=== PATIENT | male | born 1960 | race Caucasian/White ===

== ENCOUNTER 2018-08-24 18:32 | Emergency (ER) | payer BC ==
[~2018-08-24] VITALS: Ht 175.3 cm; Wt 142.9 kg
--- OUTSIDE RECORDS SUMMARY | 2018-08-24 18:35 | XMS REPORT | Summary of Care ---
Author Author [facility] Organization [facility] Address Unknown Phone Unavailable Encounter JAQUELINE Mcgovern(STEPHANIE) [id number] Date(s): 07/17/17 - 07/17/17 [facility] [address] [place] [address]- [phone] Discharge Diagnosis: Abscess of neck Discharge Diagnosis: Chest pain Discharge Disposition: Home or Self Care Attending Physician: Gilberto Mays MD Vital Signs Most recent to 1 2 oldest [Reference Range]: Height 177.8 cm (07/17/17 4:36 PM) Temperature Oral 98.4 DegF 98.7 DegF [96.4-99.1 DegF] (07/17/17 7:40 PM) (07/17/17 4:36 PM) Blood Pressure 123/82 mmHg 145/85 mmHg [90-140/60-90 mmHg] (07/17/17 7:40 PM) *HI* (07/17/17 4:36 PM) Respiratory Rate 18 BRMIN 18 BRMIN [14-20 BRMIN] (07/17/17 7:40 PM) (07/17/17 4:36 PM) Peripheral Pulse 65 bpm 63 bpm Rate [60-100 bpm] (07/17/17 7:40 PM) (07/17/17 4:36 PM) Weight 138.636 kg (07/17/17 4:36 PM) Body Mass Index 43.85 m2 (07/17/17 4:36 PM) Problem List Condition Effective Dates Status Health Status Informant Accelerated Active essential hypertension(Confirm ed) Acid Active reflux(Confirmed) Chest Active pain(Confirmed) Gastric bypass Active operation(Confirmed) Morbid Active obesity(Confirmed) Repair of Active diaphragmatic hiatal hernia(Confirmed) Allergies, Adverse Reactions, Alerts Substance Reaction Severity Status NKDA Active Medications [place] 10/325 oral tablet 1 tab, Route: PO, Drug Form: TAB, Dosing Weight 138.636, kg, ONCE, STAT, Start d ate: 07/17/17 17:53:00 MANAGER SOCIAL, Stop date: 07/17/17 17:53:00 MANAGER SOCIAL Notes: Do not exceed 4gm/day of acetaminophen. (Same as: [place] 325/10) Start Date: 07/17/17 Stop Date: 07/17/17 Status: Completed Saline Flush 0.9% 10 mL, Route: IVP, Drug Form: INJ, Dosing Weight 138.636, kg, PRN, PRN Line Flus h, Start date: 07/17/17 17:24:00 MANAGER SOCIAL, Duration: 30 day, Stop date: 08/16/17 17:2 3:00 MANAGER SOCIAL Notes: (Same as: BD Posiflush) Start Date: 07/17/17 Stop Date: 07/17/17 Status: Discontinued Tylenol with Codeine #3 oral tablet 1 - 2 tab, PO, Q4H, PRN Pain, X 2 day, # 20 tab, 0 Refill(s) Start Date: 07/17/17 Stop Date: 07/19/17 Status: Completed Results ELECTROLYTES Most recent to 1 oldest [Reference Range]: Sodium Lvl [135-145 135 mEq/L mEq/L] (07/17/17 6:30 PM) Potassium Lvl 4.3 mEq/L [3.5-5.1 mEq/L] (07/17/17 6:30 PM) Chloride Lvl [95-109 104 mEq/L mEq/L] (07/17/17 6:30 PM) CO2 [24-32 mEq/L] 23 mEq/L *LOW* (07/17/17 6:30 PM) AGAP [10.0-20.0 12.3 mEq/L mEq/L] (07/17/17 6:30 PM) CHEM PANEL Most recent to 1 oldest [Reference Range]: Creatinine Lvl 1.05 mg/dL [0.50-1.40 mg/dL] (07/17/17 6:30 PM) eGFR 78 mL/min/1.73m2 1 *NA* (07/17/17 6:30 PM) BUN [7-22 mg/dL] 18 mg/dL (07/17/17 6:30 PM) B/C Ratio [6-25] 17 (07/17/17 6:30 PM) Glucose Lvl [70-99 94 mg/dL mg/dL] (07/17/17 6:30 PM) Total Protein 7.4 g/dL [6.4-8.4 g/dL] (07/17/17 6:30 PM) Albumin Lvl [3.5-5.0 3.6 g/dL g/dL] (07/17/17 6:30 PM) Globulin [2.7-4.2 3.8 g/dL g/dL] (07/17/17 6:30 PM) A/G Ratio [0.7-1.6] 0.9 (07/17/17 6:30 PM) Calcium Lvl 8.3 mg/dL [8.5-10.5 mg/dL] *LOW* (07/17/17 6:30 PM) ALT [0-65 unit/L] 18 unit/L (07/17/17 6:30 PM) AST [0-37 unit/L] 18 unit/L (07/17/17 6:30 PM) Alk Phos [39-136 72 unit/L unit/L] (07/17/17 6:30 PM) Bili Total [0.2-1.3 0.5 mg/dL mg/dL] (07/17/17 6:30 PM) 1Result Comment: The eGFR is calculated using the CKD-EPI formula. In most young, healthy individuals the eGFR will be >90 mL/min/1.73m2. The eGFR declines with age. An eGFR of 60-89 may be normal in some populations, particularly the elderly, for whom the CKD-EPI formula has not been extensively validated. Use of the eGFR is not recommended in the following populations: Individuals with unstable creatinine concentrations, including patients and those with serious co-morbid conditions. Patients with extremes in muscle mass or diet. The data above are obtained from the National Kidney Disease Education Program ( NKDEP) which additionally recommends that when the eGFR is used in patients with extremes of body mass index for purposes of drug dosing, the eGFR should be mul tiplied by the estimated BMI. CARDIAC ENZYMES Most recent to 1 oldest [Reference Range]: Total CK [12-191 91 unit/L unit/L] (07/17/17 6:30 PM) CK MB [0.5-3.6 0.9 ng/mL ng/mL] (07/17/17 6:30 PM) CK MB Index 1.0 [0.0-2.5] (07/17/17 6:30 PM) Troponin-I <0.02 ng/mL [0.00-0.40 ng/mL] (07/17/17 6:30 PM) HEMATOLOGY Most recent to 1 oldest [Reference Range]: WBC [3.7-10.4 K/CMM] 8.6 K/CMM (07/17/17 5:53 PM) RBC [4.70-6.10 5.07 M/CMM M/CMM] (07/17/17 5:53 PM) Hgb [14.0-18.0 g/dL] 17.1 g/dL (07/17/17 5:53 PM) Hct [42.0-54.0 %] 49.0 % (07/17/17 5:53 PM) MCV [80.0-94.0 fL] 96.6 fL *HI* (07/17/17 5:53 PM) MCH [27.0-31.0 pg] 33.8 pg *HI* (07/17/17 5:53 PM) MCHC [32.0-36.0 35.0 g/dL g/dL] (07/17/17 5:53 PM) RDW [11.5-14.5 %] 13.4 % (07/17/17 5:53 PM) Platelet [133-450 238 K/CMM K/CMM] (07/17/17 5:53 PM) MPV [7.4-10.4 fL] 6.7 fL *LOW* (07/17/17 5:53 PM) Segs [45.0-75.0 %] 62.6 % (07/17/17 5:53 PM) Lymphocytes 25.4 % [20.0-40.0 %] (07/17/17 5:53 PM) Monocytes [2.0-12.0 8.6 % %] (07/17/17 5:53 PM) Eosinophils [0.0-4.0 2.4 % %] (07/17/17 5:53 PM) Basophils [0.0-1.0 1.0 % %] (07/17/17 5:53 PM) Segs-Bands # 5.4 K/CMM [1.5-8.1 K/CMM] (07/17/17 5:53 PM) Lymphocytes # 2.2 K/CMM [1.0-5.5 K/CMM] (07/17/17 5:53 PM) Monocytes # [0.0-0.8 0.7 K/CMM K/CMM] (07/17/17 5:53 PM) Eosinophils # 0.2 K/CMM [0.0-0.5 K/CMM] (07/17/17 5:53 PM) Basophils # [0.0-0.2 0.1 K/CMM K/CMM] (07/17/17 5:53 PM) Immunizations No data available for this section Procedures No data available for this section Social History Social History Type Response Smoking Status Never smoker; Previous treatment: None; Ready to change: No; Concerns about tobacco use in household: No; Exposure to Tobacco Smoke None; Cigarette Smoking Last 365 Days Yes; Reg Smoking Cessation Counseling No Assessment and Plan No data available for this section
--- OUTSIDE RECORDS SUMMARY | 2018-08-24 18:35 | XMS REPORT | Summary of Care ---
Author Author [facility] General Surgery [facility] Organization [facility] General Surgery [facility] Address Unknown Phone Unavailable Encounter HQ Froilan(FIN) [id number] Date(s): 08/01/17 - 08/01/17 [facility] General Surgery [facility] [address] [facility] [address] [place] [address]- [phone] Discharge Disposition: Home or Self Care Attending Physician: Thomas Cheung MD Referring Physician: Jamal Schmidt MD Vital Signs Most recent to 1 oldest [Reference Range]: Height 177.8 cm (08/01/17 2:33 PM) Temperature Oral 98.3 DegF [96.4-99.1 DegF] (08/01/17 2:33 PM) Blood Pressure 106/72 mmHg [90-140/60-90 mmHg] (08/01/17 2:33 PM) Peripheral Pulse 56 bpm Rate [60-100 bpm] *LOW* (08/01/17 2:33 PM) Weight 139.091 kg (08/01/17 2:33 PM) Body Mass Index 44 m2 (08/01/17 2:33 PM) Problem List Condition Effective Dates Status Health Status Informant Accelerated Active essential hypertension(Confirm ed) Acid Active reflux(Confirmed) Chest Active pain(Confirmed) Gastric bypass Active operation(Confirmed) Hypertension(Confirm Resolved ed) Morbid Active obesity(Confirmed) Repair of Active diaphragmatic hiatal hernia(Confirmed) Allergies, Adverse Reactions, Alerts Substance Reaction Severity Status NKDA Active Medications No Known Medications Results No data available for this section Immunizations No data available for this section Procedures Procedure Date Related Diagnosis Body Site Appendectomy Gastric bypass Procedure on vein Tonsillectomy Social History Social History Type Response Smoking Status Never smoker; Previous treatment: None; Ready to change: No; Concerns about tobacco use in household: No; Exposure to Tobacco Smoke None; Cigarette Smoking Last 365 Days Yes; Reg Smoking Cessation Counseling No Assessment and Plan No data available for this section
--- OUTSIDE RECORDS SUMMARY | 2018-08-24 18:35 | XMS REPORT | Continuity of Care Document ---
Author Author [facility] Interface Address Unknown Phone Unavailable Problems Problem Status Onset Date Classification Date Reported Comments Source Chest pain, unspecified 11/10/2017 02/09/2018 [facility] Chest pain 11/03/2017 02/09/2018 [facility] UPPER ABD PAIN Active 11/02/2017 [facility] Discharge Diagnosis: Abscess of neck 07/17/2017 07/20/2017 [facility] Discharge Diagnosis: Chest pain 07/17/2017 07/20/2017 [facility] LUMP ON BACK OF NECK Active 07/17/2017 [facility] Accelerated essential hypertension Active Problem 02/09/2018 [facility] Acid reflux Active Problem 02/09/2018 [facility], Medical [facility] Chest pain Active Problem 02/09/2018 [facility] Gastric bypass operation Active Problem 02/09/2018 [facility] Morbid obesity Active Problem 02/09/2018 [facility] Repair of diaphragmatic hiatal hernia Active Problem 02/09/2018 [facility] Gastro-esophageal reflux disease without esophagitis 02/09/2018 [facility] Family history of ischemic heart disease and other diseases of the circulatory system 02/09/2018 [facility] Morbid obesity due to excess calories 02/09/2018 [facility] Body mass index 45.0-49.9, adult 02/09/2018 [facility] Hypertension Resolved [facility] Severe obesity Active Problem 03/11/2018 [facility] Obstructive sleep apnea syndrome Active Problem 03/11/2018 [facility] History of essential hypertension Active Diagnosis 01/20/2017 [facility] Hypercholesterolemia Active Problem 03/11/2018 [facility] Acute URI Active Diagnosis 02/23/2017 [facility] Routine general medical examination at a health care facility Active Diagnosis 12/24/2016 [facility] Sebaceous cyst Active Diagnosis 07/29/2017 [facility] History of hiatal hernia Active Problem 11/10/2017 [facility] Venous insufficiency Active Problem 03/11/2018 [facility] S/P gastric bypass Active Problem 03/11/2018 [facility] Hematuria, unspecified type Active Diagnosis 07/14/2017 [facility] Elevated blood pressure reading Active Diagnosis 02/10/2018 [facility] Gastritis without bleeding, unspecified chronicity, unspecified gastritis type Active Problem 03/11/2018 [facility] Essential hypertension Active Diagnosis 03/11/2018 [facility] Examination Active Diagnosis 03/11/2018 [facility] Status post incision and drainage Active Diagnosis 07/29/2017 [facility] Epigastric pain Active Diagnosis 11/08/2017 [facility] Substernal chest pain Active Diagnosis 11/08/2017 [facility] Fatigue, unspecified type Active Diagnosis 11/08/2017 [facility] URI Active Diagnosis 08/26/2015 [facility] Essential hypertension Active Problem 08/26/2015 [facility] Medications Medication Details Route Status Patient Instructions Ordering Provider Order Date Source Famotidine 1 tablet at bedtime Orally Active 20 mg Orally Once a day Forrest Adamson 11/09/2017 [facility] Famotidine 1 tablet at bedtime by mouth Active 20 mg by mouth Once a day Marcial 11/09/2017 [facility] Aspirin 81 MG Chewable Tablet 81 mg=1 tab, PO, Daily, # 30 tab, 0 Refill(s) Active 11/03/2017 [facility] Famotidine 20 MG Oral Tablet [Pepcid] 20 mg=1 tab, PO, BID, # 60 tab, 0 Refill(s) Active 11/03/2017 [facility] Acetaminophen 300 MG / Codeine Phosphate 30 MG Oral Tablet [Tylenol with Codeine #3] 1 - 2 tab, PO, Q4H, PRN Pain, X 2 day, # 20 tab, 0 Refill(s) No Longer Active 07/18/2017 [facility] Acetaminophen 325 MG / Hydrocodone Bitartrate 10 MG Oral Tablet [Bowler 10/325] 1 tab, Route: PO, Drug Form: TAB, Dosing Weight 138.636, kg, ONCE, STAT, Start date: 07/17/17 17:53:00 [employer], Stop date: 07/17/17 17:53:00 CSTNotes: Do not exceed 4gm/day of acetaminophen. (Same as: Bowler 325/10) Inactive 07/17/2017 [facility] Saline Flush 0.9% 10 mL, Route: IVP, Drug Form: INJ, Dosing Weight 138.636, kg, PRN, PRN Line Flush, Start date: 07/17/17 17:24:00 INTELLIGENCE OFFICER, Duration: 30 day, Stop date: 08/16/17 17:23:00 CSTNotes: (Same as: BD Posiflush) Inactive 07/17/2017 [facility] Lisinopril-Hydrochlorothiazide 1 tablet by mouth Active 20-25 MG by mouth Once a day Marcial 07/12/2017 [facility] Clindamycin HCl 1 capsule Orally Active 300 MG Orally every 8 hrs Ghebranious 07/12/2017 [facility] Bromfed DM 10 ml as needed Orally Active 30-2-10 MG/5ML Orally every 4 -6hrs PRN Brody 02/21/2017 [facility] Amoxicillin 1 tablet Orally Active 500 mg Orally every 12 hrs [facility] 08/24/2015 [facility] Bromfed DM 10 ml as needed Orally Active 30-2-10 MG/5ML Orally every 6 hrs [facility] 08/24/2015 [facility] NO OTC meds taken not defined NA Active [facility] Aspir-81 1 tablet Orally Active 81 MG Orally Once a day [facility] Pepto-Bismol 2 tablets as needed Orally Active 262 MG Orally 8 time(s) a day [facility] Pepto-Bismol 2 tablets as needed Orally Active 262 MG Orally 8 time(s) a day [facility] NO OTC meds taken Unknown NA Active [facility] Allergies, Adverse Reactions, Alerts Substance Category Reaction Severity Reaction type Status Date Reported Comments Source N.K.D.A. Adverse Reaction Info Not Available Adverse Reaction Active 02/16/2018 [facility] Immunizations Immunization Date Given Site Status Last Updated Comments Source Results Order Name Results Value Reference Range Date Interpretation Comments Source CARDIAC ENZYMES Troponin-I null 0.00 - 0.40 11/03/2017 [facility] HEMATOLOGY D-Dimer 2.79 ug/mL FEU 11/03/2017 [facility] CARDIAC ENZYMES CK MB Index 1.1 0.0 - 2.5 11/03/2017 [facility] CARDIAC ENZYMES Total CK 88 unit/L 12 - 191 11/03/2017 [facility] CARDIAC ENZYMES Troponin-I null 0.00 - 0.40 11/03/2017 [facility] CARDIAC ENZYMES CK MB 1.0 ng/mL 0.5 - 3.6 11/03/2017 [facility] CARDIAC ENZYMES BNP 4 pg/mL <=100 pg/mL 11/03/2017 [facility] CHEM PANEL eGFR 81 mL/min/1.73m2 11/03/2017 Result Comment: The eGFR is calculated using the [...] from the National Kidney Disease Education Program (NKDEP) which additionally recommends that when the eGFR is used in patients with extremes of body mass index for purposes of drug dosing, the eGFR should be multiplied by the estimated BMI. [facility] CHEM PANEL Globulin 3.9 g/dL 2.7 - 4.2 11/03/2017 [facility] CHEM PANEL A/G Ratio 1.0 0.7 - 1.6 11/03/2017 [facility] CHEM PANEL BUN 17 mg/dL 7 - 22 11/03/2017 [facility] CHEM PANEL Sodium Lvl 136 meq/L 135 - 145 11/03/2017 [facility] CHEM PANEL Creatinine Lvl 1.02 mg/dL 0.50 - 1.40 11/03/2017 [facility] CHEM PANEL Glucose Lvl 90 mg/dL 70 - 99 11/03/2017 [facility] CHEM PANEL Calcium Lvl 8.4 mg/dL 8.5 - 10.5 11/03/2017 [facility] CHEM PANEL Total Protein 7.7 g/dL 6.4 - 8.4 11/03/2017 [facility] CHEM PANEL Albumin Lvl 3.8 g/dL 3.5 - 5.0 11/03/2017 [facility] CHEM PANEL ALT 19 unit/L 0 - 65 11/03/2017 [facility] CHEM PANEL Potassium Lvl 3.9 meq/L 3.5 - 5.1 11/03/2017 [facility] CHEM PANEL CO2 27 meq/L 24 - 32 11/03/2017 [facility] CHEM PANEL Chloride Lvl 102 meq/L 95 - 109 11/03/2017 [facility] CHEM PANEL AGAP 10.9 meq/L 10.0 - 20.0 11/03/2017 [facility] CHEM PANEL B/C Ratio 17 6 - 25 11/03/2017 [facility] CHEM PANEL AST 11 unit/L 0 - 37 11/03/2017 [facility] CHEM PANEL Bili Total 0.7 mg/dL 0.2 - 1.3 11/03/2017 [facility] CHEM PANEL Alk Phos 67 unit/L 39 - 136 11/03/2017 [facility] HEMATOLOGY Segs 64.1 % 45.0 - 75.0 11/03/2017 [facility] HEMATOLOGY Eosinophils 4.2 % 0.0 - 4.0 11/03/2017 [facility] HEMATOLOGY Basophils 0.4 % 0.0 - 1.0 11/03/2017 [facility] Lymphocytes 22.2 % 20.0 - 40.0 11/03/2017 [facility] HEMATOLOGY Monocytes 9.1 % 2.0 - 12.0 11/03/2017 [facility] Monocytes # 0.8 K/CMM 0.0 - 0.8 11/03/2017 [facility] HEMATOLOGY Eosinophils # 0.4 K/CMM 0.0 - 0.5 11/03/2017 [facility] HEMATOLOGY Segs-Bands # 5.7 K/CMM 1.5 - 8.1 11/03/2017 [facility] Lymphocytes # 2.0 K/CMM 1.0 - 5.5 11/03/2017 [facility] HEMATOLOGY PTT 29.7 s 22.9 - 35.8 11/03/2017 [facility] HEMATOLOGY INR 1.00 0.85 - 1.17 11/03/2017 [facility] HEMATOLOGY PT 13.2 s 12.0 - 14.7 11/03/2017 [facility] HEMATOLOGY Hct 44.6 % 42.0 - 54.0 11/03/2017 [facility] HEMATOLOGY RBC 4.69 M/CMM 4.70 - 6.10 11/03/2017 [facility] Hgb 15.6 g/dL 14.0 - 18.0 11/03/2017 [facility] WBC 8.8 K/CMM 3.7 - 10.4 11/03/2017 [facility] MPV 6.6 fL 7.4 - 10.4 11/03/2017 [facility] RDW 13.4 % 11.5 - 14.5 11/03/2017 [facility] Platelet 254 K/CMM 133 - 450 11/03/2017 [facility] MCHC 35.0 g/dL 32.0 - 36.0 11/03/2017 [facility] MCV 95.1 fL 80.0 - 94.0 11/03/2017 [facility] MCH 33.3 pg 27.0 - 31.0 11/03/2017 [facility] Pulmonary Embolism CTA Chest Pulmonary Embolism CTA CT CHEST WITH CONTRAST INDICATION: Evaluate for PE, - chest pain and dyspnea, CT dose DLP 954.56 COMPARISON: Chest radiograph 11/03/2017, CT chest 08/18/2010 DISCUSSION: No pulmonary emboli are visible. The heart is grossly normal in size. Coronary artery calcifications are noted. The aorta is patent and normal in caliber, without evidence of dissection. There is stable elevation of the right hemidiaphragm. There is atelectasis at the lung bases. There is otherwise no consolidation. There is no pleural effusion or pneumothorax. The trachea and major bronchi are clear. No pulmonary nodules are identified. No suspicious lymphadenopathy is seen. There is a 3.3 cm right thyroid nodule. Limited evaluation of the upper abdominal structures is grossly unremarkable. BONES: No acute bony abnormalities are seen. IMPRESSION: 1. No evidence of pulmonary embolism. 2. Stable elevation of the right hemidiaphragm. 3. A 3.3 cm right thyroid nodule. The [employer] (ACR) consensus guidelines for incidental thyroid nodules detected on CT or MRI recommended: Age < 35 years < 1 cm: No further evaluation >=1 cm: Evaluate with thyroid ultrasound Age >=35 years < 1.5 cm: No further evaluation >=1.5 cm: Evaluate with thyroid ultrasound SL:16 11/03/2017 - - Read by: Domenico Ng MD Dictated Date/time: 11/03/17 02:40 Electronically Signed by: Domenico Ng MD 11/03/17 02:54 FINAL REPORT [facility] Chest 2 views DX Chest 2 views DX Clinical Indication: - chest pain Comparison: 07/17/2017 FINDINGS: PA and lateral chest radiographs were obtained. HEART: Cardiomediastinal silhouette unremarkable. PULMONARY VASCULATURE: The pulmonary vasculature is unremarkable. LUNGS: Right lower lobe nonspecific airspace opacity. Costophrenic sulci: -Right costophrenic sulcus: The right costophrenic sulcus is sharp without evidence for pleural effusions or thickening. -Left costophrenic sulcus: The left costophrenic sulcus is sharp without evidence for pleural effusions or thickening. BONES: The visualized osseous structures are unremarkable. IMPRESSION: 1. Slight right lower lobe nonspecific airspace opacity/infiltrate, new. SL: THIAGO 11/03/2017 - - Read by: Jt Morse DO Dictated Date/time: 11/03/17 01:10 Electronically Signed by: Jt Morse DO 11/03/17 01:12 FINAL REPORT [facility] CARDIAC ENZYMES Total CK 91 unit/L 12 - 191 07/18/2017 [facility] CARDIAC ENZYMES Troponin-I null 0.00 - 0.40 07/18/2017 [facility] CARDIAC ENZYMES CK MB 0.9 ng/mL 0.5 - 3.6 07/18/2017 [facility] CARDIAC ENZYMES CK MB Index 1.0 0.0 - 2.5 07/18/2017 [facility] CHEM PANEL eGFR 78 mL/min/1.73m2 07/18/2017 Result Comment: The eGFR is calculated using the [...] from the National Kidney Disease Education Program (NKDEP) which additionally recommends that when the eGFR is used in patients with extremes of body mass index for purposes of drug dosing, the eGFR should be multiplied by the estimated BMI. [facility] CHEM PANEL Alk Phos 72 unit/L 39 - 136 07/18/2017 [facility] CHEM PANEL B/C Ratio 17 6 - 25 07/18/2017 [facility] CHEM PANEL AGAP 12.3 meq/L 10.0 - 20.0 07/18/2017 [facility] CHEM PANEL Bili Total 0.5 mg/dL 0.2 - 1.3 07/18/2017 [facility] CHEM PANEL Globulin 3.8 g/dL 2.7 - 4.2 07/18/2017 [facility] CHEM PANEL A/G Ratio 0.9 0.7 - 1.6 07/18/2017 [facility] CHEM PANEL ALT 18 unit/L 0 - 65 07/18/2017 [facility] CHEM PANEL Albumin Lvl 3.6 g/dL 3.5 - 5.0 07/18/2017 [facility] CHEM PANEL AST 18 unit/L 0 - 37 07/18/2017 [facility] CHEM PANEL Sodium Lvl 135 meq/L 135 - 145 07/18/2017 [facility] CHEM PANEL Potassium Lvl 4.3 meq/L 3.5 - 5.1 07/18/2017 [facility] CHEM PANEL Chloride Lvl 104 meq/L 95 - 109 07/18/2017 [facility] CHEM PANEL Total Protein 7.4 g/dL 6.4 - 8.4 07/18/2017 [facility] CHEM PANEL CO2 23 meq/L 24 - 32 07/18/2017 [facility] CHEM PANEL Calcium Lvl 8.3 mg/dL 8.5 - 10.5 07/18/2017 [facility] CHEM PANEL BUN 18 mg/dL 7 - 22 07/18/2017 [facility] CHEM PANEL Creatinine Lvl 1.05 mg/dL 0.50 - 1.40 07/18/2017 [facility] CHEM PANEL Glucose Lvl 94 mg/dL 70 - 99 07/18/2017 [facility] HEMATOLOGY MCH 33.8 pg 27.0 - 31.0 07/17/2017 [facility] HEMATOLOGY MCV 96.6 fL 80.0 - 94.0 07/17/2017 [facility] HEMATOLOGY MPV 6.7 fL 7.4 - 10.4 07/17/2017 [facility] HEMATOLOGY RDW 13.4 % 11.5 - 14.5 07/17/2017 [facility] HEMATOLOGY MCHC 35.0 g/dL 32.0 - 36.0 07/17/2017 [facility] HEMATOLOGY Platelet 238 K/CMM 133 - 450 07/17/2017 [facility] HEMATOLOGY Hgb 17.1 g/dL 14.0 - 18.0 07/17/2017 [facility] HEMATOLOGY Hct 49.0 % 42.0 - 54.0 07/17/2017 [facility] HEMATOLOGY RBC 5.07 M/CMM 4.70 - 6.10 07/17/2017 [facility] HEMATOLOGY WBC 8.6 K/CMM 3.7 - 10.4 07/17/2017 [facility] HEMATOLOGY Monocytes # 0.7 K/CMM 0.0 - 0.8 07/17/2017 [facility] HEMATOLOGY Eosinophils 2.4 % 0.0 - 4.0 07/17/2017 [facility] HEMATOLOGY Basophils 1.0 % 0.0 - 1.0 07/17/2017 [facility] HEMATOLOGY Segs 62.6 % 45.0 - 75.0 07/17/2017 [facility] Monocytes 8.6 % 2.0 - 12.0 07/17/2017 [facility] HEMATOLOGY Lymphocytes 25.4 % 20.0 - 40.0 07/17/2017 [facility] HEMATOLOGY Basophils # 0.1 K/CMM 0.0 - 0.2 07/17/2017 [facility] HEMATOLOGY Eosinophils # 0.2 K/CMM 0.0 - 0.5 07/17/2017 [facility] HEMATOLOGY Segs-Bands # 5.4 K/CMM 1.5 - 8.1 07/17/2017 [facility] Lymphocytes # 2.2 K/CMM 1.0 - 5.5 07/17/2017 [facility] Chest 1view DX Chest 1view DX 1 view chest portable: HISTORY: Chest pain. FINDINGS: The right diaphragm is elevated. There is minimal atelectasis above the diaphragm. The lungs are clear otherwise. Heart and mediastinal contour stable from 05/14/2012. No pleural fluid or pneumothorax seen. IMPRESSION: Minimal right basilar atelectasis. SL: [id number] 07/17/2017 - - Read by: Jose Rolon MD Dictated Date/time: 07/17/17 17:41 Electronically Signed by: Jose Rolon MD 07/17/17 17:42 FINAL REPORT [facility] Vital Signs Vital Sign Value Date Comments Source Diastolic (mm Hg) 72 02/16/2018 [facility] Systolic (mm Hg) 108 02/16/2018 [facility] Height 70 02/16/2018 [facility] Heart Rate 65 02/16/2018 [facility] Weight 306 11/06/2017 [facility] Height 70 11/06/2017 [facility] Heart Rate 67 11/06/2017 [facility] Diastolic (mm Hg) 78 11/06/2017 [facility] Systolic (mm Hg) 120 11/06/2017 [facility] Respitory Rate 19 11/03/2017 [facility] Systolic (mm Hg) 111 11/03/2017 [facility] Diastolic (mm Hg) 64 11/03/2017 [facility] Temperature Oral (F) 98.4 F 11/03/2017 [facility] Respitory Rate 17 11/03/2017 [facility] Height 175.26 cm 11/03/2017 [facility] Systolic (mm Hg) 114 11/03/2017 [facility] Diastolic (mm Hg) 79 11/03/2017 [facility] Heart Rate 67 11/03/2017 [facility] BMI Calculated 45.43 11/03/2017 [facility] Weight 139.545 11/03/2017 [facility] Temperature Oral (F) 98.6 F 11/03/2017 [facility] Respitory Rate 22 11/03/2017 [facility] Height 177.8 cm 08/16/[facility] BMI Calculated 44.14 08/16/[facility] Weight 139.545 08/16/[facility] Heart Rate 56 08/16/2017 [facility] Systolic (mm Hg) 124 08/16/2017 [facility] Diastolic (mm Hg) 81 08/16/2017 [facility] Temperature Oral (F) 98.1 F 08/16/2017 [facility] Weight 139.091 08/01/2017 [facility] BMI Calculated 44 08/01/2017 [facility] Height 177.8 cm 08/01/2017 [facility] Heart Rate 56 08/01/2017 [facility] Temperature Oral (F) 98.3 F 08/01/2017 [facility] Systolic (mm Hg) 106 08/01/2017 [facility] Diastolic (mm Hg) 72 08/01/2017 [facility] Weight 306 07/19/2017 [facility] Height 70 07/19/2017 [facility] Heart Rate 72 07/19/2017 [facility] Diastolic (mm Hg) 80 07/19/2017 [facility] Systolic (mm Hg) 122 07/19/2017 [facility] Systolic (mm Hg) 123 07/18/2017 [facility] Diastolic (mm Hg) 82 07/18/2017 [facility] Temperature Oral (F) 98.4 F 07/18/2017 [facility] Respitory Rate 18 07/18/2017 [facility] Heart Rate 65 07/18/2017 [facility] Temperature Oral (F) 98.7 F 07/17/2017 [facility] Height 177.8 cm 07/17/2017 [facility] Weight 138.636 07/17/2017 [facility] BMI Calculated 43.85 07/17/2017 [facility] Respitory Rate 18 07/17/2017 [facility] Systolic (mm Hg) 145 07/17/2017 [facility] Diastolic (mm Hg) 85 07/17/2017 [facility] Heart Rate 63 07/17/2017 [facility] Weight 309 07/12/2017 [facility] Height 70 07/12/2017 [facility] Heart Rate 68 07/12/2017 [facility] Diastolic (mm Hg) 102 07/12/2017 [facility] Systolic (mm Hg) 148 07/12/2017 [facility] Weight 310 02/21/2017 [facility] Height 70 02/21/2017 [facility] Heart Rate 64 02/21/2017 [facility] Diastolic (mm Hg) 80 02/21/2017 [facility] Systolic (mm Hg) 130 02/21/2017 [facility] Weight 308 01/18/2017 [facility] Height 70 01/18/2017 [facility] Heart Rate 64 01/18/2017 [facility] Weight 308 12/22/2016 [facility] Height 70 12/22/2016 [facility] Heart Rate 48 12/22/2016 [facility] Diastolic (mm Hg) 94 12/22/2016 [facility] Systolic (mm Hg) 162 12/22/2016 [facility] Weight 296 08/24/2015 [facility] Height 70 08/24/2015 [facility] Temperature Oral (F) 98.6 F 08/24/2015 [facility] Heart Rate 96 08/24/2015 [facility] Diastolic (mm Hg) 84 08/24/2015 [facility] Systolic (mm Hg) 128 08/24/2015 [facility] Encounters Location Location Details Encounter Type Encounter Number Reason For Visit Attending Provider ADM Date DC Date Status Source [facility] sore throat [id number] 08/24/2015 08/24/2015 [facility] Emergency [id number] Gilberto Mays 07/17/2017 07/18/2017 [facility] Outpatient [id number] THOMAS JOSE 08/01/2017 [facility] Outpatient [id number] Thomas Jose 08/01/2017 08/02/2017 [facility] Outpatient [id number] THOMAS JOSE 08/16/2017 [facility] Outpatient [id number] Thomas Jose 08/16/2017 08/17/2017 [facility] Phone Message [id number] 08/22/2017 08/24/2017 [facility] [id number] Heather Martin 11/03/2017 11/03/2017 [facility] Procedures Procedure Code Date Perfomer Comments Source Excision, benign lesion including margins, except skin tag (unless listed elsewhere), trunk, arms or legs; excised diameter 3.1 to 4.0 cm [id number] 08/16/2017 [facility] Repair, intermediate, wounds of scalp, axillae, trunk and/or extremities (excluding hands and feet); 2.6 cm to 7.5 cm [id number] 08/16/2017 [facility] Appendectomy [id number] [facility] Gastric bypass [id number] [facility] Procedure on vein [id number] [facility] Tonsillectomy [id number] [facility] Appendectomy [id number] [facility] Gastric bypass [id number] [facility] Procedure on vein [id number] [facility] Tonsillectomy [id number] [facility]
--- OUTSIDE RECORDS SUMMARY | 2018-08-24 18:36 | XMS REPORT ---
Author Author Oksana Skinner Organization eClinicalWorks Address Unknown Phone Unavailable Care Team Providers Care Skein Yarn Drier Name Role Phone Oksana Skinner CP Unavailable Allergies, Adverse Reactions, Alerts Substance Reaction Event Type N.K.D.A. Info Not Available Non Drug Allergy Problems Problem Type Condition Code Onset Dates Condition Status Assessment History of hiatal hernia Z87.19 Active Assessment Epigastric pain R10.13 Active Assessment Substernal chest pain R07.2 Active Problem History of hiatal hernia Z87.19 Active Problem Venous insufficiency I87.2 Active Problem S/P gastric bypass Z98.84 Active Problem BMI 40.0-44.9, adult Z68.41 Active Problem Severe obesity (BMI >=40) E66.01 Active Problem Hypercholesterolemia E78.00 Active Problem Obstructive sleep apnea syndrome G47.33 Active Assessment Fatigue, unspecified type R53.83 Active Assessment BMI 40.0-44.9, adult Z68.41 Active Assessment Obstructive sleep apnea syndrome G47.33 Active Assessment S/P gastric bypass Z98.84 Active Medications Medication Code System Code Instructions Start Date End Date Status Dosage Pepto-Bismol [facility] [address] 262 MG Orally 8 time(s) a day Active 2 tablets as needed Aspir-81 [facility] 78515305339 81 MG Orally Once a day Active 1 tablet Lisinopril-Hydrochlorothiazide [facility] 25089427135 20-25 MG Orally Once a day Jul 12, 2017 Active 1 tablet Vital Signs Date/Time: November 06, 2017 BMI 43.90 Index Weight 306 lbs Height 70 in Cardiac Monitoring Heart Rate 67 /min Blood Pressure Diastolic 78 mm Hg Blood Pressure Systolic 120 mm Hg Results No Known Results Summary Purpose eClinicalWorks Submission
--- OUTSIDE RECORDS SUMMARY | 2018-08-24 18:36 | XMS REPORT ---
Author Author Sury Hickey [facility] eClinical[employer] Address Unknown Phone Unavailable Care Team Providers Care Security Services Manager Name Role Phone Sury Hickey Unavailable Allergies, Adverse Reactions, Alerts Substance Reaction Event Type N.K.D.A. Info Not Available Non Drug Allergy Encounters Encounter Location Date sore throat [facility] Aug 24, 2015 Problems Problem Type Condition ICD-9 Code Onset Dates Condition Status Assessment URI (upper respiratory infection) J06.9 Active Problem Essential hypertension 401.9 Active Medications Medication Code System Code Instructions Start Date End Date Status Dosage Amoxicillin [facility] [address]-09 500 mg Orally every 12 hrs Aug 24, 2015 Aug 31, 2015 Active 1 tablet Bromfed DM [facility] [address]-69 30-2-10 MG/5ML Orally every 6 hrs Aug 24, 2015 Sep 03, 2015 Active 10 ml as needed NO OTC meds taken Unknown 0 Active Unknown Social History Social History Element Qualifiers Date Reported children . 1 Aug 24, 2015 Tobacco Use: . Are you a: never smoker Aug 24, 2015 Use of recreational / street drugs? . Answer: No Aug 24, 2015 Marital Status: . Aug 24, 2015 Do you drink alcohol? . Status: Yes, Type: Wine, Liquor, How often? Weekly, How much? 1-2 a day Aug 24, 2015 Occupation: employed. scrub nurse Aug 24, 2015 Family history Qualifier Description Comment Date Reported Maternal Grandmother Comment not available Aug 24, 2015 Paternal Grandmother Comment not available Aug 24, 2015 Siblings Comment not available Aug 24, 2015 Maternal Grandfather Comment not available Aug 24, 2015 Children Comment not available Aug 24, 2015 Father CVA, cardiomegaly Aug 24, 2015 Paternal Grandfather Comment not available Aug 24, 2015 Mother healthy Aug 24, 2015 Other: Comment not available Aug 24, 2015 Vital Signs Date/Time: Aug 24, 2015 Weight 296 lbs Height 70 in Temperature 98.6 F Cardiac Monitoring Heart Rate 96 /min Blood Pressure Diastolic 84 mm Hg Blood Pressure Systolic 128 mm Hg Summary Purpose eClinicalWorks Submission
--- OUTSIDE RECORDS SUMMARY | 2018-08-24 18:36 | XMS REPORT ---
Author Author Jamal Schmidt Organization [employer] Address Unknown Phone Unavailable Care Team Providers Care Home Supervisor Name Role Phone Jamal Schmidt CP Unavailable Allergies, Adverse Reactions, Alerts Substance Reaction Event Type N.K.D.A. Info Not Available Non Drug Allergy Problems Problem Type Condition Code Onset Dates Condition Status Assessment Hematuria, unspecified type R31.9 Active Assessment Elevated blood pressure reading R03.0 Active Assessment Sebaceous cyst L72.3 Active Problem Hypercholesterolemia E78.00 Active Problem Obstructive sleep apnea syndrome G47.33 Active Problem Venous insufficiency I87.2 Active Assessment Venous insufficiency I87.2 Active Assessment Colon cancer screening Z12.11 Active Problem BMI 40.0-44.9, adult Z68.41 Active Problem Severe obesity (BMI >=40) E66.01 Active Medications Medication Code System Code Instructions Start Date End Date Status Dosage NO OTC meds taken NDC 0 Active not defined Lisinopril-Hydrochlorothiazide ND 80647749691 20-25 MG Orally Once a day Jul 12, 2017 Active 1 tablet Clindamycin HCl [facility] 77568654203 300 MG Orally every 8 hrs Jul 12, 2017 Jul 22, 2017 Active 1 capsule Vital Signs Date/Time: Jul 12, 2017 BMI 44.33 Index Weight 309 lbs Height 70 in Cardiac Monitoring Heart Rate 68 /min Blood Pressure Diastolic 102 mm Hg Blood Pressure Systolic 148 mm Hg Results No Known Results Summary Purpose eClinicalWorks Submission
--- OUTSIDE RECORDS SUMMARY | 2018-08-24 18:36 | XMS REPORT | Summary of Care ---
Author Author [facility] General Surgery [facility] Organization [facility] General Surgery [facility] Address Unknown Phone Unavailable Encounter HQ Zohaibntr_walter(FIN) [id number] Date(s): 08/22/17 - 08/23/17 [facility] General Surgery [facility] [address] [facility], [facility] [address] [place] [address]- [phone] Vital Signs No data available for this section Problem List Condition Effective Dates Status Health Status Informant Accelerated Active essential hypertension(Confirm ed) Acid Active reflux(Confirmed) Chest Active pain(Confirmed) Gastric bypass Active operation(Confirmed) Hypertension(Confirm Resolved ed) Morbid Active obesity(Confirmed) Repair of Active diaphragmatic hiatal hernia(Confirmed) Allergies, Adverse Reactions, Alerts Substance Reaction Severity Status NKDA Active Medications No data available for this section Results No data available for this section [...]
--- OUTSIDE RECORDS SUMMARY | 2018-08-24 18:36 | XMS REPORT ---
Author Author Jamal Schmidt Organization eClinicalWorks Address Unknown Phone Unavailable Care Team Providers Care Industrial Cleaner Name Role Phone Jamal Schmidt CP Unavailable Allergies No Known Allergies Problems Problem Type Condition Code Onset Dates Condition Status Assessment Elevated blood pressure reading R03.0 Active Problem Venous insufficiency I87.2 Active Problem Hypercholesterolemia E78.00 Active Problem S/P gastric bypass Z98.84 Active Problem Severe obesity (BMI >=40) E66.01 Active Problem Gastritis without bleeding, unspecified chronicity, unspecified gastritis type K29.70 Active Problem Obstructive sleep apnea syndrome G47.33 Active Problem BMI 40.0-44.9, adult Z68.41 Active Medications Medication Code System Code Instructions Start Date End Date Status Dosage Lisinopril-Hydrochlorothiazide [facility] 81669542508 20-25 MG Orally Once a day Jul 12, 2017 Active 1 tablet Results No Known Results Summary Purpose eClinicalWorks Submission
--- OUTSIDE RECORDS SUMMARY | 2018-08-24 18:36 | XMS REPORT | Summary of Care ---
Author Author [facility] Organization [facility] Address Unknown Phone Unavailable Encounter HQ Froilan(FIN) [id number] Date(s): 11/03/17 - 11/03/17 [facility] [address] [place] [address]- Encounter Diagnosis Chest pain (Discharge Diagnosis) - 11/03/17 Chest pain, unspecified (Final) - 11/09/17 Essential (primary) hypertension (Final) - Gastro-esophageal reflux disease without esophagitis (Final) - Family history of ischemic heart disease and other diseases of the circulatory s ystem (Final) - Morbid (severe) obesity due to excess calories (Final) - Body mass index (BMI) 45.0-49.9, adult (Final) - Discharge Disposition: Home or Self Care Attending Physician: Heather Martin DO Vital Signs 1 2 3 Most recent to oldest [Reference Range]: 175.26 cm (11/03/17 12:16 AM) Height 98.4 DegF (11/03/17 3:20 AM) 98.6 DegF (11/03/17 12:16 AM) Temperature Oral [96.4-99.1 DegF] 111/64 mmHg (11/03/17 3:20 AM) 114/79 mmHg (11/03/17 12:16 AM) Blood Pressure [90-140/60-90 mmHg] 19 BRMIN (11/03/17 3:20 AM) 17 BRMIN (11/03/17 12:41 AM) 22 BRMIN *HI* (11/03/17 12:16 AM) Respiratory Rate [14-20 BRMIN] 67 bpm (11/03/17 12:16 AM) Peripheral Pulse Rate [60-100 bpm] 139.545 kg (11/03/17 12:16 AM) Weight 45.43 m2 (11/03/17 12:16 AM) Body Mass Index Problem List Condition Effective Dates Status Health Status Informant Accelerated Active essential hypertension(Confirm ed) Acid Active reflux(Confirmed) Chest Active pain(Confirmed) Gastric bypass Active operation(Confirmed) Hypertension(Confirm Resolved ed) Morbid Active obesity(Confirmed) Repair of Active diaphragmatic hiatal hernia(Confirmed) Allergies, Adverse Reactions, Alerts Substance Reaction Severity Status NKDA Active Medications aspirin 81 mg tablet, chewable 81 mg=1 tab, PO, Daily, # 30 tab, 0 Refill(s) Start Date: 11/03/17 Stop Date: 12/03/17 Status: Ordered Pepcid 20 mg oral tablet 20 mg=1 tab, PO, BID, # 60 tab, 0 Refill(s) Start Date: 11/03/17 Status: Ordered Results ELECTROLYTES Most recent to 1 2 oldest [Reference Range]: Sodium Lvl [135-145 136 mEq/L mEq/L] (11/03/17 12:39 AM) Potassium Lvl 3.9 mEq/L [3.5-5.1 mEq/L] (11/03/17 12:39 AM) Chloride Lvl [95-109 102 mEq/L mEq/L] (11/03/17 12:39 AM) CO2 [24-32 mEq/L] 27 mEq/L (11/03/17 12:39 AM) AGAP [10.0-20.0 10.9 mEq/L mEq/L] (11/03/17 12:39 AM) CHEM PANEL Most recent to 1 2 oldest [Reference Range]: Creatinine Lvl 1.02 mg/dL [0.50-1.40 mg/dL] (11/03/17 12:39 AM) eGFR 81 mL/min/1.73m2 1 *NA* (11/03/17 12:39 AM) BUN [7-22 mg/dL] 17 mg/dL (11/03/17 12:39 AM) B/C Ratio [6-25] 17 (11/03/17 12:39 AM) Glucose Lvl [70-99 90 mg/dL mg/dL] (11/03/17 12:39 AM) Total Protein 7.7 g/dL [6.4-8.4 g/dL] (11/03/17 12:39 AM) Albumin Lvl [3.5-5.0 3.8 g/dL g/dL] (11/03/17 12:39 AM) Globulin [2.7-4.2 3.9 g/dL g/dL] (11/03/17 12:39 AM) A/G Ratio [0.7-1.6] 1.0 (11/03/17 12:39 AM) Calcium Lvl 8.4 mg/dL [8.5-10.5 mg/dL] *LOW* (11/03/17 12:39 AM) ALT [0-65 unit/L] 19 unit/L (11/03/17 12:39 AM) AST [0-37 unit/L] 11 unit/L (11/03/17 12:39 AM) Alk Phos [39-136 67 unit/L unit/L] (11/03/17 12:39 AM) Bili Total [0.2-1.3 0.7 mg/dL mg/dL] (11/03/17 12:39 AM) 1Result Comment: The eGFR is calculated using [...] BMI. CARDIAC ENZYMES Most recent to 1 2 oldest [Reference Range]: Total CK [12-191 88 unit/L unit/L] (11/03/17 12:39 AM) CK MB [0.5-3.6 1.0 ng/mL ng/mL] (11/03/17 12:39 AM) CK MB Index 1.1 [0.0-2.5] (11/03/17 12:39 AM) Troponin-I <0.02 ng/mL <0.02 ng/mL [0.00-0.40 ng/mL] (11/03/17 2:46 AM) (11/03/17 12:39 AM) BNP [<=100 pg/mL] 4 pg/mL (11/03/17 12:39 AM) HEMATOLOGY Most recent to 1 2 oldest [Reference Range]: WBC [3.7-10.4 K/CMM] 8.8 K/CMM (11/03/17 12:39 AM) RBC [4.70-6.10 4.69 M/CMM M/CMM] *LOW* (11/03/17 12:39 AM) Hgb [14.0-18.0 g/dL] 15.6 g/dL (11/03/17 12:39 AM) Hct [42.0-54.0 %] 44.6 % (11/03/17 12:39 AM) MCV [80.0-94.0 fL] 95.1 fL *HI* (11/03/17 12:39 AM) MCH [27.0-31.0 pg] 33.3 pg *HI* (11/03/17 12:39 AM) MCHC [32.0-36.0 35.0 g/dL g/dL] (11/03/17 12:39 AM) RDW [11.5-14.5 %] 13.4 % (11/03/17 12:39 AM) MPV [7.4-10.4 fL] 6.6 fL *LOW* (11/03/17 12:39 AM) Platelet [133-450 254 K/CMM K/CMM] (11/03/17 12:39 AM) Segs [45.0-75.0 %] 64.1 % (11/03/17 12:39 AM) Lymphocytes 22.2 % [20.0-40.0 %] (11/03/17 12:39 AM) Monocytes [2.0-12.0 9.1 % %] (11/03/17 12:39 AM) Eosinophils [0.0-4.0 4.2 % %] *HI* (11/03/17 12:39 AM) Basophils [0.0-1.0 0.4 % %] (11/03/17 12:39 AM) Segs-Bands # 5.7 K/CMM [1.5-8.1 K/CMM] (11/03/17 12:39 AM) Lymphocytes # 2.0 K/CMM [1.0-5.5 K/CMM] (11/03/17 12:39 AM) Monocytes # [0.0-0.8 0.8 K/CMM K/CMM] (11/03/17 12:39 AM) Eosinophils # 0.4 K/CMM [0.0-0.5 K/CMM] (11/03/17 12:39 AM) PT [12.0-14.7 13.2 seconds seconds] (11/03/17 12:39 AM) INR [0.85-1.17] 1.00 (11/03/17 12:39 AM) D-Dimer 2.79 ug/mL FEU *NA* (11/03/17 1:31 AM) PTT [22.9-35.8 29.7 seconds seconds] (11/03/17 12:39 AM) Immunizations No data available for this section Procedures Procedure Date Related Diagnosis Body Site Status Appendectomy Completed Gastric bypass Completed Procedure on vein Completed Tonsillectomy Completed Social History Social History Type Response Smoking Status Never smoker; Previous treatment: None; Ready to change: No; Concerns about tobacco use in household: No; Exposure to Tobacco Smoke None; Cigarette Smoking Last 365 Days Yes; Reg Smoking Cessation Counseling No entered on: 11/03/17 Assessment and Plan No data available for this section
--- OUTSIDE RECORDS SUMMARY | 2018-08-24 18:36 | XMS REPORT ---
Author Kash Blue Organization eClinicalWorks Address Unknown Phone Unavailable Care Team Providers Care Automotive Teacher Name Role Phone Kash Shea CP Unavailable Allergies No Known Allergies Problems Problem Type Condition Code Onset Dates Condition Status Problem Severe obesity (BMI >=40) E66.01 Active Assessment History of essential hypertension Z86.79 Active Problem BMI 40.0-44.9, adult Z68.41 Active Medications No Known Medications Results No Known Results Summary Purpose eClinicalWorks Submission
--- OUTSIDE RECORDS SUMMARY | 2018-08-24 18:36 | XMS REPORT | Summary of Care ---
Author Author [facility] General Surgery [facility] Organization [facility] General Surgery [facility] Address Unknown Phone Unavailable Encounter HQ Froilan(FIN) [id number] Date(s): 08/16/17 - 08/16/17 [facility] General Surgery [facility] [address] [facility] [address] [place] [address]- [phone] Discharge Disposition: Home or Self Care Attending Physician: Thomas Cheung MD Referring Physician: Jamal Schmidt MD Vital Signs Most recent to 1 oldest [Reference Range]: Height 177.8 cm (08/16/17 11:14 AM) Temperature Oral 98.1 DegF [96.4-99.1 DegF] (08/16/17 11:14 AM) Blood Pressure 124/81 mmHg [90-140/60-90 mmHg] (08/16/17 11:14 AM) Peripheral Pulse 56 bpm Rate [60-100 bpm] *LOW* (08/16/17 11:14 AM) Weight 139.545 kg (08/16/17 11:14 AM) Body Mass Index 44.14 m2 (08/16/17 11:14 AM) Problem List Condition Effective Dates Status Health [...] Procedures Procedure Date Related Diagnosis Body Site Excision, benign lesion including margins, 08/16/17 except skin tag (unless listed elsewhere), trunk, arms or legs; excised diameter 3.1 to 4.0 cm Repair, intermediate, wounds of scalp, 08/16/17 axillae, trunk and/or extremities (excluding hands and feet); 2.6 cm to 7.5 cm Appendectomy Gastric bypass Procedure on vein Tonsillectomy Social History Social History Type Response Smoking Status Never smoker; Previous treatment: None; Ready to change: No; Concerns about tobacco use in household: No; Exposure to Tobacco Smoke None; Cigarette Smoking Last 365 Days Yes; Reg Smoking Cessation Counseling No Assessment and Plan No data available for this section
--- OUTSIDE RECORDS SUMMARY | 2018-08-24 18:36 | XMS REPORT ---
Author Author Holli Esparza Organization eClinicalWorks Address Unknown Phone Unavailable Care Team Providers Care First Front Ventilator Name Role Phone Holli Esparza CP Unavailable Allergies No Known Allergies Problems Problem Type Condition Code Onset Dates Condition Status Problem History of hiatal hernia Z87.19 Active Problem Venous insufficiency I87.2 Active Problem S/P gastric bypass Z98.84 Active Problem BMI 40.0-44.9, adult Z68.41 Active Problem Severe obesity (BMI >=40) E66.01 Active Problem Hypercholesterolemia E78.00 Active Problem Obstructive sleep apnea syndrome G47.33 Active Medications Medication Code System Code Instructions Start Date End Date Status Dosage Famotidine [facility] [address]-61 20 mg Orally Once a day November 09, 2017 Active 1 tablet at bedtime Results No Known Results Summary Purpose eClinicalWorks Submission
--- OUTSIDE RECORDS SUMMARY | 2018-08-24 18:36 | XMS REPORT ---
Author Author Jamal Schmidt Organization eClinicalWorks Address Unknown Phone Unavailable Care Team Providers Care Author Agent Name Role Phone Jamal Schmidt CP Unavailable Allergies, Adverse Reactions, Alerts Substance Reaction Event Type N.K.D.A. Info Not Available Non Drug Allergy Problems Problem Type Condition Code Onset Dates Condition Status Problem Hypercholesterolemia E78.00 Active Problem Obstructive sleep apnea syndrome G47.33 Active Problem Venous insufficiency I87.2 Active Assessment Sebaceous cyst L72.3 Active Assessment Status post incision and drainage Z98.890 Active Problem BMI 40.0-44.9, adult Z68.41 Active Problem Severe obesity (BMI >=40) E66.01 Active Medications Medication Code System Code Instructions Start Date End Date Status Dosage Lisinopril-Hydrochlorothiazide [facility] 11115318502 20-25 MG Orally Once a day Jul 12, 2017 Active 1 tablet Clindamycin HCl [facility] 92742032216 300 MG Orally every 8 hrs Jul 12, 2017 Jul 23, 2017 Active 1 capsule Vital Signs Date/Time: Jul 19, 2017 BMI 43.90 Index Weight 306 lbs Height 70 in Cardiac Monitoring Heart Rate 72 /min Blood Pressure Diastolic 80 mm Hg Blood Pressure Systolic 122 mm Hg Results No Known Results Summary Purpose eClinicalWorks Submission
--- OUTSIDE RECORDS SUMMARY | 2018-08-24 18:36 | XMS REPORT ---
Author Author Oksana Skinner [facility] eClinicalWorks Address Unknown Phone Unavailable Care Team Providers Care Shear Grinder Operator Helper Name Role Phone Oksana Skinner CP Unavailable Allergies, Adverse Reactions, Alerts Substance Reaction Event Type N.K.D.A. Info Not Available Non Drug Allergy Problems Problem Type Condition Code Onset Dates Condition Status Problem Obstructive sleep apnea syndrome G47.33 Active Problem BMI 40.0-44.9, adult Z68.41 Active Problem Hypercholesterolemia E78.00 Active Assessment Obstructive sleep apnea syndrome G47.33 Active Assessment Hypercholesterolemia E78.00 Active Problem Severe obesity (BMI >=40) E66.01 Active Assessment Acute URI J06.9 Active Medications Medication Code System Code Instructions Start Date End Date Status Dosage NO OTC meds taken NDC 0 Active not defined Bromfed DM [facility] [address]-51 30-2-10 MG/5ML Orally every 4 -6hrs PRN February 21, 2017 February 28, 2017 Active 10 ml as needed Vital Signs Date/Time: February 21, 2017 BMI 44.48 Index Weight 310 lbs Height 70 in Cardiac Monitoring Heart Rate 64 /min Blood Pressure Diastolic 80 mm Hg Blood Pressure Systolic 130 mm Hg Results Name Result Date Reference Range Unit Abnormality Flag CBC ----Platelets 253 [id number] ----NEUTROPHILS MID-0.5,GRA-6.3 20170221 ----MCHC 34.0 20170221 ----MCH 34.8H 20170221 ----MCV 102.4H 20170221 ----WBC 8.1 20170221 ----RDW 12.2 20170221 ----RBC 4.48 20170221 ----Hemoglobin 15.6 20170221 ----Hematocrit 45.9 20170221 Summary Purpose eClinicalWorks Submission
--- OUTSIDE RECORDS SUMMARY | 2018-08-24 18:36 | XMS REPORT ---
Author Author Morgan Marcial [facility] eClinicalWorks Address Unknown Phone Unavailable Care Team Providers Care Industrial Court Magistrate Name Role Phone Morgan Marcial Unavailable Allergies, Adverse Reactions, Alerts Substance Reaction Event Type N.K.D.A. Info Not Available Non Drug Allergy Problems Problem Type Condition Code Onset Dates Condition Status Assessment Essential hypertension I10 Active Problem Gastritis without bleeding, unspecified chronicity, unspecified gastritis type K29.70 Active Assessment Examination Z00.00 Active Assessment Gastritis without bleeding, unspecified chronicity, unspecified gastritis type K29.70 Active Problem S/P gastric bypass Z98.84 Active Problem Venous insufficiency I87.2 Active Problem Essential hypertension I10 Active Problem BMI 40.0-44.9, adult Z68.41 Active Problem Severe obesity (BMI >=40) E66.01 Active Problem Hypercholesterolemia E78.00 Active Problem Obstructive sleep apnea syndrome G47.33 Active Medications Medication Code System Code Instructions Start Date End Date Status Dosage Lisinopril-Hydrochlorothiazide [facility] 15219139428 20-25 MG by mouth Once a day Jul 12, 2017 Active 1 tablet Famotidine ND 85737813758 20 mg by mouth Once a day November 09, 2017 Active 1 tablet at bedtime Aspir-81 [facility] 63005969119 81 MG Orally Once a day Active 1 tablet Pepto-Bismol [facility] 75664967045 262 MG Orally 8 time(s) a day Active 2 tablets as needed Vital Signs Date/Time: February 16, 2018 Blood Pressure Diastolic 72 mm Hg Blood Pressure Systolic 108 mm Hg Height 70 in Cardiac Monitoring Heart Rate 65 /min Results No Known Results Summary Purpose eClinicalWorks Submission
[2018-08-24] MEDS ORDERED: ASPIRIN 81 MG CHEW TAB PO ONE (19:00)
[2018-08-24 19:13] LABS: BASOPHILS # (AUTO) 0.1 (0.0-0.1); BASOPHILS % 0.9 % (0.0-1.0); EOSINOPHILS # (AUTO) 0.5 (0.0-0.4); EOSINOPHILS % 6.4 % (0.0-6.0); HEMATOCRIT 46.3 % (38.2-49.6); HEMOGLOBIN 16.2 g/dL (14.0-18.0); LYMPHOCYTES # (AUTO) 2.1 (1.0-3.2); LYMPHOCYTES % 26.4 % (18.0-39.1); MEAN CORPUSCULAR HEMOGLOBIN 33.8 pg (28-32); MEAN CORPUSCULAR VOLUME 96.7 fL (81-99); MONOCYTES # (AUTO) 0.7 (0.2-0.8); MONOCYTES % 8.8 % (4.4-11.3); NEUTROPHILS # (AUTO) 4.5 (2.1-6.9); NEUTROPHILS % 57.1 % (38.7-80.0); PLATELET COUNT 246 x10e3/uL (140-360); RED BLOOD COUNT 4.79 x10e6/uL (4.3-5.7); RED CELL DISTRIBUTION WIDTH 13.4 % (11.7-14.4)
--- NOTE | 2018-08-24 19:34 | Diagnostic Imaging Report ---
EXAMINATION: CHEST SINGLE (PORTABLE) COMPARISON: None INDICATION: Chest pain DISCUSSION: Frontal view of the chest obtained at 1906 hours. HEART AND MEDIASTINUM: The cardiomediastinal silhouette is unremarkable. LINES: None. LUNGS: There is eventration of the right diaphragm with overlying subsegmental atelectasis. Remainder of the right lung is clear. The left lung is well inflated and clear. No pneumonia or pulmonary edema. PLEURA: No pleural effusion or pneumothorax. BONES AND SOFT TISSUES: No focal osseous lesion. The soft tissues are normal. IMPRESSION: Eventration of the right diaphragm of uncertain chronicity. No acute cardiopulmonary process. Signed by: Dr. Sophie Muse MD on 08/24/2018 7:30 PM
[2018-08-24 19:42] LABS: ALANINE AMINOTRANSFERASE 21 IU/L (0-55); ALBUMIN 4.1 g/dL (3.5-5.0); ALBUMIN/GLOBULIN RATIO 1.1 (0.8-2.0); ALKALINE PHOSPHATASE 65 IU/L (40-150); ANION GAP 13.4 mmol/L (8-16); BLOOD UREA NITROGEN 17 mg/dL (7-26); BUN/CREATININE RATIO 14 (6-25); CALCIUM 9.8 mg/dL (8.4-10.2); CARBON DIOXIDE 26 mmol/L (22-29); CHLORIDE 99 mmol/L (98-107); CREATINE KINASE 88 IU/L (30-200); CREATININE, SERUM 1.21 mg/dL (0.72-1.25); EST GLOMERULAR FILTRATION RATE > 60 ML/MIN (60-); GLUCOSE 108 mg/dL (74-118); POTASSIUM 3.4 mmol/L (3.5-5.1); SODIUM 135 mmol/L (136-145)
[2018-08-24 19:50] LABS: INR 0.92; PROTHROMBIN TIME 13.2 seconds (11.9-14.5)
[2018-08-24 19:51] LABS: PARTIAL THROMBOPLASTIN TIME 26.4 seconds (23.8-35.5)
[2018-08-24 19:55] LABS: BILIRUBIN,URINE NEGATIVE (NEGATIVE); CLARITY,URINE CLEAR (CLEAR); COLOR,URINE YELLOW (YELLOW); KETONES,URINE NEGATIVE (NEGATIVE); LEUKOCYTE ESTERASE ,URINE NEGATIVE (NEGATIVE); NITRITE,URINE NEGATIVE (NEGATIVE); PROTEIN,URINE DIPSTICK NEGATIVE (NEGATIVE); URINE UROBILINOGEN 0.2 mg/dL (0.2 - 1)
[2018-08-24 20:10] LABS: WBC,URINE (MAN) 0-5 /HPF (0-5)
[2018-08-24] MEDS ORDERED: NEXIUM40 MG PO (20:32)
[2018-08-24] MEDS ORDERED: FAMOTIDINE20 MG PO (20:32)
[2018-08-24] MEDS ORDERED: ASPIRIN81 MG PO (20:32)
[2018-08-24] MEDS ORDERED: LISINOPRIL-HCT1 EAC1 PO (20:32)
--- NOTE | 2018-08-24 21:54 | NUR ---
TRANSFER INITIATED TO [facility]
[2018-08-24] MEDS ORDERED: POTASSIUM CHLORIDE 20 MEQ TAB CR PO STA (22:14)
--- NOTE | 2018-08-24 22:44 | NUR ---
report called to sal burch at [facility]
[2018-08-24 23:11] VITALS: BP 98/71
== END 2018-08-24 23:12 | disposition short-term general hospital (02) ==
LOC: ER 18:32
DX: R07.89 Other chest pain (principal); I20.9 Angina pectoris, unspecified; R53.1 Weakness; R42 Dizziness and giddiness; R11.2 Nausea with vomiting, unspecified; I10 Essential (primary) hypertension; Z98.84 Bariatric surgery status
CPT/HCPCS: 36415; 71045; 80053; 81001; 82550; 82553; 83880; 84484; 85025; 85610; 85730; 93005; 99284

== ENCOUNTER 2019-03-15 21:37 | Observation (INO) | payer BC ==
[~2019-03-15] VITALS: Ht 175.3 cm; Wt 142.9 kg
[~2019-03-15 21:37] MED LIST: ASPIRIN81 MG PO; FAMOTIDINE20 MG PO; LISINOPRIL-HCT1 EAC1 PO; NEXIUM40 MG PO
--- OUTSIDE RECORDS SUMMARY | 2019-03-15 21:39 | XMS REPORT ---
Author Author [facility] Address Unknown Phone Unavailable Care Team Providers Care Family And Divorce Legal Assistant Name Role Phone Lay SPRING Unavailable Unavailable Problems This patient has no known problems. Allergies, Adverse Reactions, Alerts This patient has no known allergies or adverse reactions. Medications This patient has no known medications. Results Test Description Test Time Test Comments Text Results Atomic Results Result Comments CHEST SINGLE (PORTABLE) 2018-08-24 19:29:00 [place] [address] Patient Name: HUNG MCHUGH MR #: [id number] : 1960 Age/Sex: 57/M Req #: [id number] Adm Physician: Ordered by: AINSLEY SPRING MD Report #: [id number] Location: ER Room/Bed: Procedure: [id number] DX/CHEST SINGLE (PORTABLE) Exam Date: 08/24/18 Exam Time: 1900 REPORT STATUS: Signed EXAMINATION: CHEST SINGLE (PORTABLE) COMPARISON: None INDICATION: Chest pain DISCUSSION: Frontal view of the chest obtained at 1906 hours. HEART AND MEDIASTINUM: The cardiomediastinal silhouette is unremarkable. LINES: None. LUNGS: There is eventration of the right diaphragm with overlying subsegmental atelectasis. Remainder of the right lung is clear. The left lung is well inflated and clear. No pneumonia or pulmonary edema. PLEURA: No pleural effusion or pneumothorax. BONES AND SOFT TISSUES: No focal osseous lesion. The soft tissues are normal. IMPRESSION: Eventration of the right diaphragm of uncertain chronicity. No acute cardiopulmonary process. Signed by: Dr. Kasey Clemente MD on 08/24/2018 7:30 PM Dictated By: KASEY CLEMENTE MD 29 Transcribed By: AYDEN on 08/24/181929 COPY TO: AINSLEY SPRING MD
[2019-03-15] MEDS ORDERED: ONDANSETRON HCL INJ 2MG/ML 2ML 2 MG/ML VIAL IV STA (22:20)
[2019-03-15] MEDS ORDERED: KETOROLAC TROMETHAMINE 30 MG/ML VIAL IV STA (22:20)
--- NOTE | 2019-03-15 23:25 | Diagnostic Imaging Report ---
EXAM: CT of the abdomen and pelvis WITHOUT contrast HISTORY: Pain, left side, history of appendectomy and gastric bypass COMPARISON: None available. TECHNIQUE: The abdomen and pelvis were scanned utilizing a multidetector helical scanner. Coronal and sagittal reformats are available. PROTOCOL: Renal colic IV CONTRAST: None, which limits sensitivity and specificity of evaluation of the soft tissues and vascular structures. ORAL CONTRAST: None, which limits sensitivity and specificity of evaluation of the bowel. RADIATION DOSE: Total DLP: 1476.52 mGy*cm Estimated effective dose: (DLP x 0.015 x size factor) Dose modulation, iterative reconstruction, and/or weight based adjustment of the mA/kV was utilized to reduce the radiation dose to as low as reasonably achievable. COMPLICATIONS: None FINDINGS: LOWER THORAX: Mild right greater than left atelectasis versus scarring. Mild bronchial wall thickening. HEPATOBILIARY: No definite focal hepatic lesions. No biliary ductal dilatation. The gallbladder is unremarkable. SPLEEN: No splenomegaly. PANCREAS: No focal masses or ductal dilatation. ADRENALS: No adrenal nodule. KIDNEYS/URETERS: Right: * A 5 mm calcification at the interpolar region. * A 3 mm calcification near the inferior pole. * A 2.4 cm interpolar region fluid density, compatible with a cyst. * No hydronephrosis. Left: * A 1.6 cm fluid density at the upper interpolar region, compatible with a cyst. * A 6 mm calcific density near the ureteropelvic junction. * Mild hydroureteronephrosis. * Perinephric fat stranding. PELVIC ORGANS/BLADDER: The urinary bladder is partially decompressed. Borderline enlargement of prostate. PERITONEUM / RETROPERITONEUM: No free air or fluid. GI TRACT: No bowel dilation. Postsurgical changes at the gastroesophageal junction, stomach, and left upper quadrant the abdomen, compatible with provided history of gastric bypass. Post surgical changes compatible with appendectomy. LYMPH NODES: No pathologically enlarged lymph nodes. VESSELS: Scattered atherosclerotic vascular calcifications, including the coronary arteries. BONES and JOINTS: No aggressive osseous lesion or acute fracture. SOFT TISSUES: Unremarkable. IMPRESSION: 1. A 6 mm left obstructing distal ureteral stone, associated mild hydroureteronephrosis. 2. A 5 mm and 3 mm nonobstructing right renal stone. 3. Coronary atherosclerosis. Signed by: Dr. Ajit Reilly D.O., M.M.M. on 03/15/2019 11:22 PM
[2019-03-15 23:30] LABS: BILIRUBIN,URINE SMALL (NEGATIVE); CLARITY,URINE CLEAR (CLEAR); COLOR,URINE YELLOW (YELLOW); KETONES,URINE TRACE (NEGATIVE); LEUKOCYTE ESTERASE ,URINE NEGATIVE (NEGATIVE); NITRITE,URINE NEGATIVE (NEGATIVE); PROTEIN,URINE DIPSTICK TRACE (NEGATIVE); URINE UROBILINOGEN 1 mg/dL (0.2 - 1)
[2019-03-15 23:36] LABS: BASOPHILS # (AUTO) 0.1 (0.0-0.1); BASOPHILS % 0.5 % (0.0-1.0); EOSINOPHILS # (AUTO) 0.2 (0.0-0.4); EOSINOPHILS % 1.8 % (0.0-6.0); HEMATOCRIT 44.4 % (38.2-49.6); HEMOGLOBIN 15.9 g/dL (14.0-18.0); LYMPHOCYTES # (AUTO) 1.6 (1.0-3.2); LYMPHOCYTES % 16.2 % (18.0-39.1); MEAN CORPUSCULAR HEMOGLOBIN 33.8 pg (28-32); MEAN CORPUSCULAR HGB CONC 35.8 g/dL (31-35); MEAN CORPUSCULAR VOLUME 94.5 fL (81-99); MONOCYTES % 9.8 % (4.4-11.3); NEUTROPHILS # (AUTO) 6.9 (2.1-6.9); NEUTROPHILS % 71.4 % (38.7-80.0); PLATELET COUNT 276 x10e3/uL (140-360); RED CELL DISTRIBUTION WIDTH 13.2 % (11.7-14.4)
[2019-03-15 23:59] LABS: ALBUMIN 4.1 g/dL (3.5-5.0); ALBUMIN/GLOBULIN RATIO 1.2 (0.8-2.0); ANION GAP 16.3 mmol/L (8-16); CALCIUM 9.4 mg/dL (8.4-10.2); CREATININE, SERUM 1.61 mg/dL (0.72-1.25); POTASSIUM 4.3 mmol/L (3.5-5.1)
[2019-03-16] VITALS (8 sets, daily range): BP systolic 101–126; BP diastolic 55–95
[2019-03-16 00:11] LABS: EPITHELIAL CELLS,URINE FEW /LPF; MUCUS,URINE FEW (RARE); RBC,URINE 0-5 /HPF (0-5); WBC,URINE (MAN) 0-5 /HPF (0-5)
[2019-03-16] MEDS ORDERED: ONDANSETRON HCL INJ 2MG/ML 2ML 2 MG/ML VIAL IV PRN (00:30)
[2019-03-16] MEDS ORDERED: MORPHINE SULFATE INJ 4 MG/ML INJ 1ML IV PRN ×2 (00:30→11:00)
--- NOTE | 2019-03-16 02:00 | NUR ---
Patient received via W/C from ER. AAO x 4. Admission history obtained. Initial physical assessment performed. Patient had no c/o pain. Respirations even and non-labored. Patient oriented to room, call light and plan of care. Patient instructed about "NPO status" for upcoming surgical procedure. Patient verbalized understanding. Fall precautions implemented. Patient instructed to call for assistance when needed. Call light within reach.
[2019-03-16] MEDS: SODIUM CHLORIDE 0.9% 1000ML 1,000 ML IV SCH ×3 (02:05→20:18)
[2019-03-16] MEDS: CEFTRIAXONE SOD 1 GM/NS 50 ML 50 ML IV SCH (02:05)
[2019-03-16] MEDS ORDERED: LIPITOR10 MG PO (03:27)
--- NOTE | 2019-03-16 04:30 | NUR ---
Patient complained of left flank pain (8/). Medication administered per eMAR.
--- NOTE | 2019-03-16 06:26 | NUR ---
Patient reminded to void in urinal as urine would be strained after each void. Patient stated he has not voided since admission. Would continue to monitor.
--- NOTE | 2019-03-16 07:05 | NUR ---
Walking rounds done. Shift report given to oncoming nurse regarding patient's health status.
--- NOTE | 2019-03-16 07:30 | NUR ---
REC'D PT AAOX3, ON NPO DIET, ON ROOM AIR, IV TO RIGHT AC 20 GAUGE INTACT AND PATENT. INSTRUCTED PT TO CALL WHEN HE URINATES IN URINAL TO STRAIN URINE. FLUIDS RUNNING. SIDE RAILS UP X2, CALL CARIAS WITHIN REACH, AND BED IN LOWEST POSITION.
[2019-03-16] MEDS ORDERED: MAGNESIUM HYDROXIDE 30 ML UDC PO PRN (11:00)
[2019-03-16] MEDS ORDERED: HYDROCODONE/APAP 10MG-325MG TAB PO PRN (11:00)
--- NOTE | 2019-03-16 11:06 | History and Physical ---
PRIMARY CARE PHYSICIAN: Dr. Jamal Schmidt. WINCHMAN/CRANE OPERATOR: Dr. Alex Simon. CHIEF COMPLAINT: Left obstructive 6 mm stone associated with hydronephrosis. HISTORY OF PRESENT ILLNESS: The patient is a 58-year-old male, had no significant medical problem, came in with left renal colic and left flank pain. CT scan shown that the patient has a 6 mm left obstructed kidney stone associated with hydroureteronephrosis. The patient is pending further evaluation. He is doing much better with pain control. PAST MEDICAL HISTORY: Kidney stone, hypertension, dyslipidemia. PAST SURGICAL HISTORY: Bariatric surgery, appendectomy, gastric bypass surgery. SOCIAL HISTORY: The patient does not smoke or use alcohol. No recreational drug use. ALLERGIES: NO KNOWN ALLERGIES. HOME MEDICATIONS: Aspirin, Lipitor, Nexium, and lisinopril/HCTZ. PHYSICAL EXAMINATION: VITAL SIGNS: Temperature is 98, blood pressure 101/57, pulse rate is 52, and respirations 18. GENERAL: The patient is not in acute distress. He is awake. HEENT: Normocephalic, atraumatic. Pupils reactive. Anicteric. NECK: Supple grossly. PULMONARY: Clear. CARDIOVASCULAR: Regular rate and rhythm. ABDOMEN: Soft. Unremarkable. EXTREMITIES: No cyanosis or edema. NEUROLOGIC: No gross focal deficit. LABORATORY DATA: Sodium is 138, potassium 4.3, chloride 104, bicarb 22, BUN is 27, creatinine 1.6, glucose is 130. WBC is 9.7, hemoglobin is 15.9, hematocrit is 44.4, platelets are 276. IMPRESSION: 1. A 6 mm left obstructed kidney stone associated with hydroureteronephrosis. 2. Baseline hypertension. 3. Baseline chronic kidney disease, stage unknown. PLAN: Continue with IV fluid rehydration. Hold off home medication for now. Antibiotics, pain control and stone management by Dr. Alex Simon on consult. MD WHITNEY Martinez/OMAYRA /[id number]
--- NOTE | 2019-03-16 11:40 | NUR ---
DR. FARLEY SAW PT TO TALK ABOUT SURGERY. TO GET CONSENT SIGNED FROM PATIENT FOR A CYSTORETROGRADE LEFT STENT PLACEMENT.
[2019-03-16] MEDS ORDERED: IOPAMIDOL 610MG/1ML 300 MG/ML VIAL IV ONE (15:25)
--- NOTE | 2019-03-16 15:35 | NUR ---
PT TAKEN TO SURGERY VIA STRETCHER.
--- NOTE | 2019-03-16 16:55 | NUR ---
REC'D REPORT FROM DOMINIC IN PACU. PT VITAL SIGNS STABLE. 112/ 77, HR 67, 94% ON RA, 16 RR, AND 97.[address] FARLEY.
[2019-03-16] MEDS ORDERED: SODIUM CHLORIDE 0.9% 1000ML 1,000 ML ONE (17:37)
--- NOTE | 2019-03-16 17:59 | NUR ---
PT RESTING IN BED EATING DINNER. NO S/S OF DISTRESS AND PT STATES NO PAIN. SIDE RAILS UP X2, CALL CARIAS WITHIN REACH, AND BED IN LOWEST POSITION.
[2019-03-16] MEDS ORDERED: SEVOFLURANE INHAL SOLN 250 ML PEN BTL ONE (18:04)
[2019-03-16] MEDS ORDERED: PROPOFOL IV EMULSION 10 MG/ML 20 ML VIAL ONE (18:04)
[2019-03-16] MEDS ORDERED: DEXAMETHASONE SOD PHOS INJ 4 MG/ML VIAL ONE (18:04)
[2019-03-16] MEDS ORDERED: SUCCINYLCHOLINE 200 MG/10 ML SYR ONE (18:04)
[2019-03-16] MEDS ORDERED: LIDOCAINE HCL 2% LOCAL INJ 5 ML SDV VIAL INJ ONE (18:04)
[2019-03-16] MEDS ORDERED: FENTANYL CITRATE/PF 100MCG/2 ML INJ ONE (18:04)
[2019-03-16] MEDS ORDERED: MIDAZOLAM HCL 2 MG/2 ML VIAL ONE (18:04)
[2019-03-16] MEDS: SENNOSIDES 8.6 MG TAB PO SCH (18:21)
--- NOTE | 2019-03-16 19:15 | NUR ---
Patient received lying in bed. AAO x 4. Denies pain at this time. Blood tinged urine in urinal strained. No sediments noted. Fall precautions implemented. Call light within reach.
--- NOTE | 2019-03-16 20:13 | Consultation ---
DATE OF CONSULTATION: 03/16/2019 Consultation is called by Dr. Brock, emergency room. CHIEF COMPLAINT/REASON FOR CONSULTATION: Left ureteral calculus. HISTORY OF PRESENT ILLNESS: Mr. Porter is a very pleasant 58-year-old male, who has an episode of hip hematuria, found to have a left 6 mm UPJ calculus with hydronephrosis for which urologic consultation requested. PAST MEDICAL HISTORY: Notable for gastric bypass, appendectomy, and hypertension. MEDICATIONS: Please see MAR. ALLERGIES: NKDA. SOCIAL HISTORY: Denied smoking or drinking. FAMILY HISTORY: Denied urologic stones or malignancies. REVIEW OF SYSTEMS: Noncontributory other than problems mentioned above for 12 organ systems. PHYSICAL EXAMINATION: GENERAL: A middle-aged male, in no distress. VITAL SIGNS: Temperature 97.0, pulse 52, respirations 18, and blood pressure 101/57. HEENT: Normocephalic, atraumatic. NECK: Supple. BACK: Without costovertebral angle tenderness bilaterally. ABDOMEN: Soft. obese. It is nontender, nondistended. No palpable mass. No palpable hernias. No palpable lymphadenopathy. : Normal male genitalia. EXTREMITIES: Without edema. NEUROLOGIC: Moves all four extremities. PSYCH: Alert and appropriate. SKIN: Intact. Normal color. PERTINENT LABORATORY DATA: CT scan revealing a 5 mm right middle pole calculus, 3 mm right lower pole calculus, 1.6 cm left renal cyst, 6 mm left UPJ calculus, and hydronephrosis. Urinalysis, 0-5 reds, 0-5 whites, trace protein. Sodium 138, potassium 4.3, chloride 104, bicarb 21, BUN 27, creatinine 1.6, and glucose 130. Hemoglobin 15, hematocrit 44, platelet count 236,000, and white blood cell count 9700. IMPRESSION: 1. Left ureteral calculus. 2. Bilateral renal stones. 3. Left hydronephrosis. 4. Left renal colic. 5. Hematuria. 6. Renal cyst. 7. Obesity. 8. Acute renal failure. PLAN: The patient will need stenting in acute renal failure. We will perform urgently. He has been on prophylactic antibiotics. The patient's cyst will under surveillance. Thank you for allowing me to participate in the care of your patient. I will be happy to follow along with you. MD SETH Pederson/OMAYRA /[id number]
--- NOTE | 2019-03-16 23:04 | Operative Report ---
DATE OF PROCEDURE: 03/16/2019 SURGEON: Alex Simon MD PREOPERATIVE DIAGNOSES: 1. Microscopic hematuria. 2. Left-sided hydronephrosis. POSTOPERATIVE DIAGNOSES: 1. Microscopic hematuria. 2. Left-sided hydronephrosis. 3. Urethral stricture disease. PROCEDURES: 1. Cystourethroscopy with calibration and dilation of urethral stricture (separate procedure for Urethral stricture disease). 2. Cystourethroscopy with right ureter catheterization and right retrograde pyelogram (separate procedure for the diagnosis of microscopic hematuria). 3. Cystourethroscopy with insertion of left indwelling ureteral stent (separate procedure for diagnosis of left hydronephrosis). 4. Supervision of fluoroscopy. 5. Interpretation of retrograde pyelography. ANESTHESIA: General. ESTIMATED BLOOD LOSS: Minimal. COMPLICATIONS: None. INDICATION: Mr. Porter is a very pleasant 58-year-old male with acute onset of sharp severe left-sided flank pain and history of hematuria. He and I had a long discussion about alternatives, risks, and benefits of doing nothing, stent placement and nephrostomy versus options, alternatives, risks, and benefits of the procedure. PROCEDURE IN DETAIL: After informed consent was obtained, the patient was taken to the operative suite. He was placed supine on the table. He underwent general anesthesia by Anesthesia Service. He was placed in dorsal lithotomy position, sterilely prepped and draped in standard fashion for cystoscopy. A 21-Bahamian cystoscope was inserted per urethra. multifocal bulbar urethral stricture was noted. Panendoscopy of the bladder revealed no tumors, no stones. The right ureteral orifice was catheterized, and retrograde pyelogram was performed on the right revealed several renal calculi, left revealed a 6 mm proximal ureteral calculus, which was manipulated in the renal pelvis. The ureteral stent was deployed with coil in the renal pelvis and the coil in the bladder 7 x 28 cm. The bladder was drained. The patient was awakened from anesthesia and transferred to the recovery room in excellent condition. Supervision of fluoroscopy and interpretation under of retrograde pyelography: I was present for the entire procedure and supervised fluoroscopy. There was no radiologist present. Attention was turned to the left ureteral orifice, which was catheterized. Retrograde pyelogram was performed. On the right side, there was stone in the mid upper pole and right side and on the left side a 6 mm ureteral calculus was manipulated in the renal pelvis. A ureteral stent deployed on the left-side. MD SETH Pederson/MODL /[id number]
[2019-03-17] MEDS: CEFTRIAXONE SOD 1 GM/NS 50 ML 50 ML IV SCH (00:22)
[2019-03-17 00:37] VITALS: BP 114/56
[2019-03-17 05:16] VITALS: BP 114/76
[2019-03-17 06:01] LABS: BASOPHILS % 0.2 % (0.0-1.0); EOSINOPHILS % 0.1 % (0.0-6.0); HEMATOCRIT 39.5 % (38.2-49.6); HEMOGLOBIN 13.8 g/dL (14.0-18.0); LYMPHOCYTES % 11.2 % (18.0-39.1); MEAN CORPUSCULAR HEMOGLOBIN 33.8 pg (28-32); MEAN CORPUSCULAR HGB CONC 34.9 g/dL (31-35); MEAN CORPUSCULAR VOLUME 96.8 fL (81-99); MONOCYTES # (AUTO) 0.4 (0.2-0.8); NEUTROPHILS # (AUTO) 7.3 (2.1-6.9); PLATELET COUNT 185 x10e3/uL (140-360); RED BLOOD COUNT 4.08 x10e6/uL (4.3-5.7); RED CELL DISTRIBUTION WIDTH 13.2 % (11.7-14.4)
[2019-03-17 06:22] LABS: ALANINE AMINOTRANSFERASE 14 IU/L (0-55); ALBUMIN 3.3 g/dL (3.5-5.0); ALBUMIN/GLOBULIN RATIO 1.1 (0.8-2.0); ALKALINE PHOSPHATASE 51 IU/L (40-150); ANION GAP 10.9 mmol/L (8-16); BLOOD UREA NITROGEN 25 mg/dL (7-26); BUN/CREATININE RATIO 22 (6-25); CARBON DIOXIDE 23 mmol/L (22-29); CHLORIDE 108 mmol/L (98-107); CREATININE, SERUM 1.15 mg/dL (0.72-1.25); EST GLOMERULAR FILTRATION RATE > 60 ML/MIN (60-); GLUCOSE 112 mg/dL (74-118); POTASSIUM 4.9 mmol/L (3.5-5.1); SODIUM 137 mmol/L (136-145)
--- NOTE | 2019-03-17 06:31 | NUR ---
Patient's urine trained after 3 voids---No sediment/stone noted. Will continue to monitor.
[2019-03-17] MEDS: SODIUM CHLORIDE 0.9% 1000ML 1,000 ML IV SCH ×2 (06:37→06:54)
--- NOTE | 2019-03-17 07:15 | NUR ---
Shift report given to oncoming nurse.
[2019-03-17 07:30] VITALS: BP 105/55
--- NOTE | 2019-03-17 07:30 | NUR ---
REC'D PT AAOX3, ON ROOM AIR AND NO S/S OF DISTRESS. PT C/O OF NO PAIN. IV TO RT. AC INTACT AND PATENT. SIDE RAILS UP X2, CALL CARIAS WITHIN REACH, AND BED IN LOWEST POSITION.
[2019-03-17 08:07] VITALS: BP 105/55
[2019-03-17] MEDS: SENNOSIDES 8.6 MG TAB PO SCH (09:00)
--- NOTE | 2019-03-17 11:16 | Discharge Summary ---
PRIMARY CARE PHYSICIAN: Jamal Schmidt M.D. FOUNTAIN ROLLER ASSEMBLER: Alex Simon M.D. FINAL DIAGNOSES: 1. Microscopic hematuria associated with left-sided hydronephrosis associated with left side 6 mm kidney stone. 2. Status post cystourethroscopy with dilatation of the ureteral strictures and insertion of left indwelling ureteral stent. 3. Left flank pain, resolved. 4. Mild acute renal insufficiency, secondary to the left hydronephrosis. SUMMARY: This is a 58-year-old male, status post procedures done by Dr. Alex Simon. The patient once cleared by his urologist, Dr. Simon, the patient may be discharged home. Prescription from Dr. Simon has been given for Tylenol No. 3 and Ceftin. The patient is otherwise stable today. On rounds, the patient is comfortable and in no significant pain. The hematuria has been currently subsided. The patient is urinating well. He is comfortable. The patient want to go home and will go home today once cleared by Dr. Simon on his rounds. The prescription already left in the chart. The patient is to follow up with Dr. Simon for stone management. The patient will need stent removal in the future. Otherwise, the patient is stable. No other medical issue. The patient will go home today after clearance. The patient is stable, discharged home, and follow up with Dr. Alex Simon as instructed. MD WHITNEY Martinez/OMAYRA /[id number]
[2019-03-17 11:29] VITALS: BP 109/58
[2019-03-17] MEDS ORDERED: TYLENOL WITH C1 EACH PO (13:48)
[2019-03-17] MEDS ORDERED: CEFUROXIME250 MG PO (13:54)
--- NOTE | 2019-03-17 14:08 | NUR ---
PT IV REMOVED FROM RIGHT AC WITHOUT ANY COMPLICATIONS. DISCHARGE PAPERS GIVEN AND EXPLAINED TO PATIENT. PATIENT UNDERSTOOD INSTRUCTIONS ABOUT FOLLOW UPS. NO S/S OF DISTRESS. PATIENT ESCORTED TO THE FRONT OF THE HOSPITAL WITH .
[2019-03-18] MEDS ORDERED: ASPIRIN81 MG PO (14:40)
[2019-03-22] MEDS ORDERED: TYLENOL # 31 EA PO (07:13)
[2019-03-22] MEDS ORDERED: CEFUROXIME250 MG PO (07:13)
== END 2019-03-17 14:09 | disposition home or self-care (01) ==
LOC: ER 21:37 → INTOOBSV 03-16 00:16 → ERHOLD 03-16 00:16 → MED/SURG2 03-16 01:46
PROVIDERS: ADMIT Internal Medicine; ATTEND Internal Medicine
DX: N13.1 Hydronephrosis with ureteral stricture, not elsewhere classified (principal); N17.9 Acute kidney failure, unspecified; R31.9 Hematuria, unspecified; E66.01 Morbid (severe) obesity due to excess calories; Z68.42 Body mass index [BMI] 45.0-49.9, adult; N35.919 Unspecified urethral stricture, male, unspecified site
CPT/HCPCS: 36415 ×2; 52332; 74176; 74420; 80053 ×2; 81001; 85025 ×2; 87086; 99284; C1758; C2617; G0378 ×2; J0696 ×2; J1100; J1885; J2001; J2250; J2270; J2405; J2704; J3010; J7030 ×2; Q9967

== ENCOUNTER → 2019-03-22 | Day surgery (SDC) | payer BC ==
[~2019-03-22] MED LIST changes: +CEFTRIAXONE SOD 1 GM/NS 50 ML 50 ML IV ONE; +CEFUROXIME250 MG PO; +DEXAMETHASONE SOD PHOS INJ 4 MG/ML VIAL ONE; +FENTANYL CITRATE/PF 100MCG/2 ML INJ ONE; +LIDOCAINE HCL 2% LOCAL INJ 5 ML SDV VIAL INJ ONE; +LIPITOR10 MG PO; +MIDAZOLAM HCL 2 MG/2 ML VIAL ONE; +ONDANSETRON HCL INJ 2MG/ML 2ML 2 MG/ML VIAL ONE; +PROPOFOL IV EMULSION 10 MG/ML 20 ML VIAL ONE; +SEVOFLURANE INHAL SOLN 250 ML PEN BTL ONE; +TYLENOL # 31 EA PO; +TYLENOL WITH C1 EACH PO
[2019-03-22 09:55] VITALS: BP 131/89
--- NOTE | 2019-03-24 21:35 | Operative Report ---
DATE OF PROCEDURE: 03/22/2019 SURGEON: Alex Simon MD PREOPERATIVE DIAGNOSIS: Left renal calculus. POSTOPERATIVE DIAGNOSIS: Left renal calculus. PROCEDURES: 1. Staged shock wave lithotripsy, left side. 2. Supervision of fluoroscopy. ANESTHESIA: General. ESTIMATED BLOOD LOSS: Minimal. COMPLICATIONS: None. INDICATIONS: Mr. Porter is a 58-year-old male with a history of left ureteral calculus and stent placement and ablation. The patient voiced understanding of the options, alternatives, risks, and elected to proceed to shock wave lithotripsy. PROCEDURE IN DETAIL: After informed consent was obtained, the patient was taken to the operative suite, placed supine on the operating table. He underwent general anesthesia by the Anesthesia Service. The stone was localized in the proximal ureter in the X, Y, and Z planes. Treatment was performed per the treatment report. The patient tolerated the procedure well and was transported to recovery room in excellent condition. Supervision of fluoroscopy: I was present for the entire procedure and supervised fluoroscopy. There was no radiologist present. Dosage per treatment report. Alex Simon MD ES/MODL /[id number]
== END | disposition home or self-care (01) ==
LOC: OR 06:40
PROVIDERS: ATTEND Urology
DX: N13.2 Hydronephrosis with renal and ureteral calculous obstruction (principal); N13.1 Hydronephrosis with ureteral stricture, not elsewhere classified; R31.29 Other microscopic hematuria; I10 Essential (primary) hypertension; E66.01 Morbid (severe) obesity due to excess calories; Z01.810 Encounter for preprocedural cardiovascular examination
CPT/HCPCS: 50590; 93005; J0696; J1100; J2001; J2250; J2405; J2704; J3010

== ENCOUNTER → 2019-04-05 | Day surgery (SDC) | payer BC ==
[~2019-04-05] MED LIST changes: -CEFTRIAXONE SOD 1 GM/NS 50 ML 50 ML IV ONE; +GENTAMICIN 120MG/NS 100ML 100 ML ONE; +IOPAMIDOL 610MG/1ML 300 MG/ML VIAL IV ONE
--- OUTSIDE RECORDS SUMMARY | 2019-04-05 05:09 | XMS REPORT | Clinical Summary ---
Author Author OLGA [facility] Address Unknown Phone Unavailable Care Team Providers Care Toolroom Helper Name Role Phone Unknownmeds, Provider PCP Unavailable Allergies No Known Allergies Medications End Date Status Medication Sig Dispensed Refills Start Date Active aspirin 81 MG EC tablet Take 81 mg by 0 mouth daily. Active famotidine (PEPCID) 20 MG Take 20 mg by 0 tablet mouth daily. Active ergocalciferol (VITAMIN Take 50,000 0 D2) 50,000 unit capsule Units by mouth once a week. Active cholecalciferol (VITAMIN Take 1,000 0 D3) 1,000 unit tablet Units by mouth daily. 08/27/2018 Discontinued lisinopril 20 MG Tab 20 Take by mouth 0 mg, hydroCHLOROthiazide daily. 25 MG Tab 25 mg Active Problems Problem Noted Date Chest pain 08/25/2018 Dizziness 08/25/2018 Hypertension 08/25/2018 Headache 08/25/2018 Encounters Care Team Description Date Type Specialty Mita Nuno MD Shamsee, MD Benson Singh Sonal Muralinath, MD Chest pain, unspecified type; Dizziness; Other headache syndrome; Essential hypertension 08/25/2018 Hospital Cardiology - Encounter 08/27/2018 08/25/2018 Orders Only General Internal Medicine 08/25/2018 Travel after 04/04/2018 Social History Date Tobacco Use Types Packs/Day Years Used Never Smoker Smokeless Tobacco: Never Used Alcohol Use Drinks/Week oz/Week Comments Yes Alcohol Habits Answer Date Recorded How often do you have a drink containing alcohol? Monthly or less 08/25/2018 How many drinks containing alcohol do you have on Not asked a typical day when you are drinking? How often do you have six or more drinks on one Not asked occasion? Sex Assigned at Date Recorded Not on file Industry Job Start Date Occupation Not on file Not on file Not on file Travel End Travel History Travel Start No recent travel history available. Last Filed Vital Signs Time Taken Vital Sign Reading 08/27/2018 7:56 AM TECHNICAL COMMUNICATION TEACHER Blood Pressure 124/64 08/27/2018 7:56 AM TECHNICAL COMMUNICATION TEACHER Pulse 71 08/27/2018 7:56 AM TECHNICAL COMMUNICATION TEACHER Temperature 36.3 C (97.3 F) 08/27/2018 7:56 AM TECHNICAL COMMUNICATION TEACHER Respiratory Rate 18 08/27/2018 7:56 AM TECHNICAL COMMUNICATION TEACHER Oxygen Saturation 96% - Inhaled Oxygen - Concentration 08/27/2018 7:56 AM TECHNICAL COMMUNICATION TEACHER Weight 137 kg (302 lb) 08/25/2018 12:19 AM TECHNICAL COMMUNICATION TEACHER Height 177.8 cm (5' 10") 08/27/2018 7:56 AM TECHNICAL COMMUNICATION TEACHER Body Mass Index 43.33 Plan of Treatment Not on file Procedures Comments Procedure Name Priority Date/Time Associated Diagnosis REPORT OF PROCEDURE - 09/18/2018 ENDOSCOPY SCAN 8:30 AM TECHNICAL COMMUNICATION TEACHER RHYTHM STRIP - SCAN 09/18/2018 8:30 AM TECHNICAL COMMUNICATION TEACHER ECHOCARDIOGRAM REPORT - 08/27/2018 SCAN 11:20 AM TECHNICAL COMMUNICATION TEACHER CBC W/PLT COUNT & AUTO Routine 08/27/2018 DIFFERENTIAL 4:22 AM TECHNICAL COMMUNICATION TEACHER CBC W/PLT COUNT & AUTO Routine 08/27/2018 DIFFERENTIAL 4:22 AM TECHNICAL COMMUNICATION TEACHER MAGNESIUM Routine 08/27/2018 4:22 AM TECHNICAL COMMUNICATION TEACHER PHOSPHORUS Routine 08/27/2018 4:22 AM TECHNICAL COMMUNICATION TEACHER HEPATIC FUNCTION PANEL Routine 08/27/2018 4:22 AM TECHNICAL COMMUNICATION TEACHER BASIC METABOLIC PANEL (7) Routine 08/27/2018 4:22 AM TECHNICAL COMMUNICATION TEACHER 2D ECHO W/ DOPPLER KRISTEN 08/26/2018 (CW/PW/COLOR) 2:45 PM TECHNICAL COMMUNICATION TEACHER CBC W/PLT COUNT & AUTO Routine 08/26/2018 DIFFERENTIAL 4:53 AM TECHNICAL COMMUNICATION TEACHER CBC W/PLT COUNT & AUTO Routine 08/26/2018 DIFFERENTIAL 4:53 AM TECHNICAL COMMUNICATION TEACHER MAGNESIUM Routine 08/26/2018 4:53 AM TECHNICAL COMMUNICATION TEACHER PHOSPHORUS Routine 08/26/2018 4:53 AM TECHNICAL COMMUNICATION TEACHER HEPATIC FUNCTION PANEL Routine 08/26/2018 4:53 AM TECHNICAL COMMUNICATION TEACHER BASIC METABOLIC PANEL (7) Routine 08/26/2018 4:53 AM TECHNICAL COMMUNICATION TEACHER CAROTID DOPPLER BILATERAL Routine 08/25/2018 7:30 PM TECHNICAL COMMUNICATION TEACHER ECG 12-LEAD Routine 08/25/2018 1:01 PM TECHNICAL COMMUNICATION TEACHER Procedure Note - Interface, External Ris In - 08/25/2018 1:02 PM TECHNICAL COMMUNICATION TEACHER Ventricula r Rate 62 BPM Atrial Rate 62 BPM P-R Interval 186 ms QRS Duration 78 ms Q-T Interval 410 ms QTC Calculatio n(Bazett) 416 ms P [place] 40 degrees R [place] 39 degrees T [place] 36 degrees Normal sinus rhythm Normal ECG No previous ECGs available ECG 12-LEAD Routine 08/25/2018 1:01 PM TECHNICAL COMMUNICATION TEACHER CREATINE KINASE (CK) Routine 08/25/2018 12:54 PM TECHNICAL COMMUNICATION TEACHER TROPONIN I Routine 08/25/2018 12:54 PM TECHNICAL COMMUNICATION TEACHER CREATINE KINASE (CK) Routine 08/25/2018 5:53 AM TECHNICAL COMMUNICATION TEACHER TROPONIN I Routine 08/25/2018 5:[address]CHNICAL COMMUNICATION TEACHER CT BRAIN WITHOUT IV Routine 08/25/2018 CONTRAST 4:35 AM TECHNICAL COMMUNICATION TEACHER CBC W/PLT COUNT & AUTO Routine 08/25/2018 DIFFERENTIAL 2:36 AM TECHNICAL COMMUNICATION TEACHER D-DIMER Routine 08/25/2018 2:36 AM TECHNICAL COMMUNICATION TEACHER TSH/FREE T4 IF INDICATED Routine 08/25/2018 2:36 AM TECHNICAL COMMUNICATION TEACHER C-REACTIVE PROTEIN Routine 08/25/2018 2:36 AM TECHNICAL COMMUNICATION TEACHER CBC W/PLT COUNT & AUTO Routine 08/25/2018 DIFFERENTIAL 2:36 AM TECHNICAL COMMUNICATION TEACHER HEMOGLOBIN A1C Routine 08/25/2018 2:36 AM TECHNICAL COMMUNICATION TEACHER LIPID PANEL Routine 08/25/2018 2:36 AM TECHNICAL COMMUNICATION TEACHER MAGNESIUM Routine 08/25/2018 2:36 AM TECHNICAL COMMUNICATION TEACHER PHOSPHORUS Routine 08/25/2018 2:36 AM TECHNICAL COMMUNICATION TEACHER HEPATIC FUNCTION PANEL Routine 08/25/2018 2:36 AM TECHNICAL COMMUNICATION TEACHER BASIC METABOLIC PANEL (7) Routine 08/25/2018 2:36 AM TECHNICAL COMMUNICATION TEACHER after 04/04/2018 Results * EKG-SCANNED (09/18/2018 8:30 AM TECHNICAL COMMUNICATION TEACHER) Narrative Performed At * RHYTHM STRIP - SCAN (09/18/2018 8:30 AM TECHNICAL COMMUNICATION TEACHER) Narrative Performed At * ECHOCARDIOGRAM REPORT - SCAN (08/27/2018 11:20 AM TECHNICAL COMMUNICATION TEACHER) Narrative Performed At * CBC with platelet count + automated diff (08/27/2018 4:22 AM TECHNICAL COMMUNICATION TEACHER) Only the most recent of 3 results within the time period is included. WBC 6.3 3.5 - 10.5 K/L [facility] RBC 4.33 (L) 4.63 - 6.08 M/L [facility] Hemoglobin 14.3 13.7 - 17.5 GM/DL [facility] Hematocrit 42.2 40.1 - 51.0 % [facility] MCV 97.5 (H) 79.0 - 92.2 fL [facility] MCH 33.0 (H) 25.7 - 32.2 pg [facility] MCHC 33.9 32.3 - 36.5 GM/DL [facility] RDW 13.1 11.6 - 14.4 % [facility] Platelets 210 150 - 450 K/CU MM [facility] MPV 8.6 (L) 9.4 - 12.4 fL [facility] nRBC 0 0 - 0 /100 WBC [facility] % Neutros 56 % [facility] % Lymphs 28 % [facility] % Monos 8 % [facility] % Eos 7 % [facility] % Baso 1 % [facility] # Neutros 3.53 1.78 - 5.38 K/L [facility] # Lymphs 1.77 1.32 - 3.57 K/L [facility] # Monos 0.49 0.30 - 0.82 K/L [facility] # Eos 0.46 0.04 - 0.54 K/L [facility] # Baso 0.05 0.01 - 0.08 K/L [facility] Immature 0 0 - 1 % [facility] Granulocytes-[facility] Specimen Blood Performing Organization Address City/[facility]/[place] [phone] [place] [address] * Phosphorus (08/27/2018 4:22 AM TECHNICAL COMMUNICATION TEACHER) Only the most recent of 3 results within the time period is included. Phosphorus 3.4 2.3 - 4.7 mg/dL [facility] Specimen Blood Performing Organization Address City/[facility]/Zipcode Phone Number [address] [address] [facility] * Magnesium (08/27/2018 4:22 AM TECHNICAL COMMUNICATION TEACHER) Only the most recent of 3 results within the time period is included. Magnesium 2.2 1.6 - 2.6 mg/dL [facility] Specimen Blood Performing Organization Address City/[facility]/Zipcode Phone Number [address] [address] [facility] * Hepatic function panel (08/27/2018 4:22 AM TECHNICAL COMMUNICATION TEACHER) Only the most recent of 3 results within the time period is included. Protein, Total 6.4 6.0 - 8.3 gm/dL [facility] Albumin 3.6 3.5 - 5.0 g/dL [facility] Total Bilirubin 0.6 0.2 - 1.2 mg/dL [facility] Bilirubin, Direct 0.2 0.1 - 0.5 mg/dL [facility] Alkaline Phosphatase 57 40 - 150 U/L [facility] AST 13 5 - 34 U/L [facility] ALT 14 6 - 55 U/L [facility] Specimen Blood Performing Organization Address City/[facility] Phone Number [facility] [address] [place] [address] [facility] * Basic metabolic panel (08/27/2018 4:22 AM TECHNICAL COMMUNICATION TEACHER) Only the most recent of 3 results within the time period is included. Sodium 138 136 - 145 meq/L [facility] Potassium 4.4 3.5 - 5.1 meq/L [facility] Chloride 106 98 - 107 meq/L [facility] CO2 24 22 - 29 meq/L [facility] BUN 18 7 - 21 mg/dL [facility] Creatinine 1.02 0.57 - 1.25 mg/dL [facility] Glucose 98 70 - 105 mg/dL [facility] Calcium 8.4 8.4 - 10.2 mg/dL [facility] EGFR 75Comment: ESTIMATED GFR IS mL/min/1.73 sq m [facility] NOT ACCURATE CREATININE [facility] CLEARANCE IN PREDICTING GLOMERULAR FILTRATION RATE. ESTIMATED GFR IS NOT APPLICABLE FOR DIALYSIS PATIENTS. Specimen Blood Performing Organization Address City/[facility]/Zipcode Phone Number [facility] [address] [place] [address] [facility] * 2D Echo W/Doppler(CW/PW/Color) (08/26/2018 2:45 PM TECHNICAL COMMUNICATION TEACHER) Ejection Fraction [facility] Specimen Narrative Performed At Transthoracic Echocardiography Report (TTE) [facility] Demographics [facility] Patient NameDevi MCHUGHte of Study08/26/2018 ERNESTO Male Visit [id number] Room [id number] Number Date of 1960ReferringMicZOILA Sidhu Physician Age 57 year(s)Jacquelin Seymour [facility] Key Account Executive Ibis Espinosa Interpreting Alicia [place] Procedure Type of Study TTE procedure:2DECHO W DOPPLER(CW/PW/COLOR) (Pending Discharge) Indications:Acute Chest Pain/ Suspected CAD. Clinical History HTN HGB 14.7 HCT 42.4 % Height: 70 inches Weight: 137.89 kg (304 lbs) BSA: 2.49 m^2 BMI: 43.62 kg/m^2 HR: 64 bpm BP: 102/71 mmHg Summary The LV endocardium is adequately visualized. The left ventricle is chamber size (by PSLAX dimension) is normal (male - LVIDd 4.2-5.8cm) . Borderline concentric LV hypertrophy. Estimated LVEF by qualitative assessment is normal (55-60%) . Grade 1 diastolic dysfunction (impaired relaxation and low-normal LA pressure). No significant pericardial effusion is visualized. RV chamber size is mildly enlarged . Global RV systolic function is low normal . Estimated peak systolic PA pressure is cannot be determined due to inadequate TR velocity signal Previous Study No prior studies available for comparison. Signature Findings Technical Quality: Technically difficult exam. Left Ventricle The LV endocardium is adequately visualized. The left ventricle is chamber size (by PSLAX dimension) is normal (male - LVIDd 4.2-5.8cm) . Borderline concentric LV hypertrophy. Estimated LVEF by qualitative assessment is normal (55-60%) . Grade 1 diastolic dysfunction (impaired relaxation and low-normal LA pressure). Left AtriumLA is not well visualized, unable to estimate LA size but appears normal. Right VentricleRV chamber size is mildly enlarged . Global RV systolic function is low normal . Right Atrium RA size is normal. Aortic Valve Normal AoV structure. No evidence of aortic regurgitation. Mitral Valve Mild MV leaflet thickening. Trace mitral regurgitation. Tricuspid ValveA trace of tricuspid regurgitation. Estimated peak systolic PA pressure is cannot be determined due to inadequate TR velocity signal . Pulmonic Valve Normal PV structure and function. No evidence of pulmonary regurgitation. AortaAortic root size (SInus of Valsalva diameter) is mildly dilated . Proximal ascending aorta size is mildly dilated . PericardiumNo significant pericardial effusion is visualized. IVC/SVC/PA/PV/PleuralThe estimated RA pressure by IVC dynamics indeterminate . The inferior vena cava is not well visualized. Chambers/Structures Left Ventricle LVIDd: 4.35 cm LVEDV:85.54 ml LVIDs: 3.07 cm LVESV:36.88 ml LV Septum Diastolic: 1.13 cm LV PW Diastolic: 1.13 cm LV FS: 29.4 % LVOT Diameter: 2.22 cm LVEF: 56.9 % Right Ventricle RV Diast Dim.: 4.14 cm Aorta Ao Root S of Destniy.: 4.02 cmAscending Aorta: 3.98 cm Doppler/Quantitative Measurements Mitral Valve MV Peak E-Wave: 0.8 m/s MV Peak A-Wave: 0.69 m/s E/A Ratio: 1.16 Peak Gradient: 2.59 mmHg Deceleration Time: 283.2 msec MV Ronald. Peak: Tissue Doppler E' Septal Velocity: 0.06 m/sE/E': 10.05 E' Lateral Velocity: 0.08 m/s Aortic Valve Peak Velocity: 1.2 m/s Mean Velocity: 0.83 m/s Peak Gradient: 5.76 mmHg Mean Gradient: 3.14 mmHg AV Area (continuity): 4.22 cm^2 AV VTI: 20.06 cm AV DVI: 1.09 LVOT Peak Velocity: 1.18 m/s Peak Gradient: 5.53 mmHg Mean Velocity: 0.77 m/s Mean Gradient: 2.74 mmHg LVOT Diameter: 2.22 cmLVOT VTI: 21.86 cm LVOT Area: 3.87 cm^2LVOT SV:84.57 ml LVOT CO: 5.41 l/min LVOT CI: 2.17 l/min/m^2 Tricuspid Valve TR Velocity: 2.22 m/s TR Gradient: 19.71 mmHg Procedure Note Interface, External Ris In - 08/27/2018 10:32 AM TECHNICAL COMMUNICATION TEACHER Transthoracic Echocardiography Report (TTE) Demographics Patient Name HUNG MCHUGH Date of Study 08/26/2018 ERNESTO Gender Male Visit Number [id number] Race Room Number [id number] Number Date of 1960 Referring ZOILA Esquivel Physician Age 57 year(s) Lightning Protection Installer Camille Seymour, [facility] Key Account Executive Ibis Espinosa Interpreting Jeevan Lange Physician Procedure Type of Study TTE procedure:2DECHO W DOPPLER(CW/PW/COLOR) (Pending Discharge) Indications:Acute Chest Pain/ Suspected CAD. Clinical History HTN HGB 14.7 HCT 42.4 % Height: 70 inches Weight: 137.89 kg (304 lbs) BSA: 2.49 m^2 BMI: 43.62 kg/m^2 HR: 64 bpm BP: 102/71 mmHg Summary The LV endocardium is adequately visualized. The left ventricle is chamber size (by PSLAX dimension) is normal (male - LVIDd 4.2-5.8cm) . Borderline concentric LV hypertrophy. Estimated LVEF by qualitative assessment is normal (55-60%) . Grade 1 diastolic dysfunction (impaired relaxation and low-normal LA pressure). No significant pericardial effusion is visualized. RV chamber size is mildly enlarged . Global RV systolic function is low normal . Estimated peak systolic PA pressure is cannot be determined due to inadequate TR velocity signal Previous Study No prior studies available for comparison. Signature Findings Technical Quality: Technically difficult exam. Left Ventricle The LV endocardium is adequately visualized. The left ventricle is chamber size (by PSLAX dimension) is normal (male - LVIDd 4.2-5.8cm) . Borderline concentric LV hypertrophy. Estimated LVEF by qualitative assessment is normal (55-60%) . Grade 1 diastolic dysfunction (impaired relaxation and low-normal LA pressure). Left Atrium LA is not well visualized, unable to estimate LA size but appears normal. Right Ventricle RV chamber size is mildly enlarged . Global RV systolic function is low normal . Right Atrium RA size is normal. Aortic Valve Normal AoV structure. No evidence of aortic regurgitation. Mitral Valve Mild MV leaflet thickening. Trace mitral regurgitation. Tricuspid Valve A trace of tricuspid regurgitation. Estimated peak systolic PA pressure is cannot be determined due to inadequate TR velocity signal . Pulmonic Valve Normal PV structure and function. No evidence of pulmonary regurgitation. Aorta Aortic root size (SInus of Valsalva diameter) is mildly dilated . Proximal ascending aorta size is mildly dilated . Pericardium No significant pericardial effusion is visualized. IVC/SVC/PA/PV/Pleural The estimated RA pressure by IVC dynamics indeterminate . The inferior vena cava is not well visualized. Chambers/Structures Left Ventricle LVIDd: 4.35 cm LVEDV:85.54 ml LVIDs: 3.07 cm LVESV:36.88 ml LV Septum Diastolic: 1.13 cm LV PW Diastolic: 1.13 cm LV FS: 29.4 % LVOT Diameter: 2.22 cm LVEF: 56.9 % Right Ventricle RV Diast Dim.: 4.14 cm Aorta Ao Root S of Destiny.: 4.02 cm Ascending Aorta: 3.98 cm Doppler/Quantitative Measurements Mitral Valve MV Peak E-Wave: 0.8 m/s MV Peak A-Wave: 0.69 m/s E/A Ratio: 1.16 Peak Gradient: 2.59 mmHg Deceleration Time: 283.2 msec MV Ronald. Peak: Tissue Doppler E' Septal Velocity: 0.06 m/s E/E': 10.05 E' Lateral Velocity: 0.08 m/s Aortic Valve Peak Velocity: 1.2 m/s Mean Velocity: 0.83 m/s Peak Gradient: 5.76 mmHg Mean Gradient: 3.14 mmHg AV Area (continuity): 4.22 cm^2 AV VTI: 20.06 cm AV DVI: 1.09 LVOT Peak Velocity: 1.18 m/s Peak Gradient: 5.53 mmHg Mean Velocity: 0.77 m/s Mean Gradient: 2.74 mmHg LVOT Diameter: 2.22 cm LVOT VTI: 21.86 cm LVOT Area: 3.87 cm^2 LVOT SV:84.57 ml LVOT CO: 5.41 l/min LVOT CI: 2.17 l/min/m^2 Tricuspid Valve TR Velocity: 2.22 m/s TR Gradient: 19.71 mmHg Performing Organization Address City/State/Zipcode Phone Number [facility] * Carotid doppler bilateral (08/25/2018 7:30 PM TECHNICAL COMMUNICATION TEACHER) Ejection Fraction [facility] Specimen Impressions Performed At Right Impression [facility] 1. The internal, common and external carotid arteries are within normal [facility] limits. 2. The vertebral artery flow is antegrade and normal. Left Impression 1. There is <50% diameter reduction (approximately 19% by 2-D measurement) in the internal carotid artery with a peak velocity of 69/20 cm/sec and heterogeneous plaque. 2. The common and external carotid arteries are within normal limits. 3. The vertebral artery flow is antegrade and normal. Conclusions Summary Carotid duplex scanning and color flow imaging were performed bilaterally. The arteries were adequately visualized. The right internal carotid artery was normal with no plaque visualized. The left internal carotid artery had <50% hemodynamically insignificant stenosis (approximately 19% by 2-D measurement) with heterogeneous plaque. The vertebral artery flow was antegrade and normal bilaterally. Signature Velocities are measured in cm/s ; Diameters are measured in cm Carotid Right Measurements +---------+----+----+-----+ + + + !Location !PSV !EDV !Angle!%Stenosis 2D !%Stenosis Doppler !Tortuosity ! +---------+----+----+-----+ + + + !Prox CCA !101 !20.5!60 ! !! ! +---------+----+----+-----+ + + + !Dist CCA !111 !18!60 ! !! ! +---------+----+----+-----+ + + + !Prox ICA !86.2!22.4!60 ! !Normal! ! +---------+----+----+-----+ + + + !Dist ICA !77.1!33.6!60 ! !! ! +---------+----+----+-----+ + + + !Dist ECA !150 !19.8!60 ! !! ! +---------+----+----+-----+ + + + !Vertebral!53.9!23.8!60 ! !! ! +---------+----+----+-----+ + + + - There is antegrade vertebral flow noted on the right side. - Additional Measurements:ICAPSV/CCAPSV 0.78.ICAEDV/CCAEDV 1.64. Carotid Left Measurements +---------+----+----+-----+ + + + !Location !PSV !EDV !Angle!%Stenosis 2D !%Stenosis Doppler !Tortuosity ! +---------+----+----+-----+ + + + !Prox CCA !106 !28.7!60 ! !! ! +---------+----+----+-----+ + + + !Dist CCA !110 !22.4!60 ! !! ! +---------+----+----+-----+ + + + !Prox ICA !69.4!20.3!60 !19%!<50%! ! +---------+----+----+-----+ + + + !Dist ICA !82!30.8!60 ! !! ! +---------+----+----+-----+ + + + !Prox ECA !77.8!9.8 !60 ! !! ! +---------+----+----+-----+ + + + !Vertebral!56!24.5!60 ! !! ! +---------+----+----+-----+ + + + - There is antegrade vertebral flow noted on the left side. - Additional Measurements:ICAPSV/CCAPSV 0.75.ICAEDV/CCAEDV 1.07. Narrative Performed At LAB - Carotid Duplex Study [facility] Demographics [facility] Patient NameHUNG MCHUGH Date of Study08/25/2018 ERNESTO Age57 Visit [id number] Gender Male Date of Birth1960 Referring Tori Knowles Room [id number] Physician Lightning Protection Installer Caterina GaryInterpreting Willow De Guzman, RVTPhysicianMD Procedure Type of Study: Cerebral: Carotid, CAROTID DOPPLER, BILATERAL. Indications for Study:Syncope . Patient Status:Routine. Study Location:Portable. Technical Quality:Adequate visualization. Risk Factors History of Disease + + + + !Diagnosis!Date!Comments ! + + + + !History/Risk Factors:!08/25/2018!Chest pain ! ! !!Hx of HTN! ! !!Dizziness ! ! !!S/P gastric bypass ! ! !!Hypotension upon standing! + + + + Procedure Note Interface, External Ris In - 08/26/2018 10:31 AM TECHNICAL COMMUNICATION TEACHER [facility] - Carotid Duplex Study Demographics Patient Name HUNG MCHUGH Date of Study 08/25/2018 ERNESTO Age 57 Visit Number [id number] Gender Male Accession Number [id number] Date of 1960 Referring Tori Knowles Room Number [id number] Physician Lightning Protection Installer Caterina Gary Interpreting Willow De Guzman [facility] Phys[facility] Procedure Type of Study: Cerebral: Carotid, CAROTID DOPPLER, BILATERAL. Indications for Study:Syncope . Patient Status:Routine. Study Location:Portable. Technical Quality:Adequate visualization. Risk Factors History of Disease + + + + !Diagnosis !Date !Comments ! + + + + !History/Risk Factors: !08/25/2018!Chest pain ! ! ! !Hx of HTN ! ! ! !Dizziness ! ! ! !S/P gastric bypass ! ! ! !Hypotension upon standing ! + + + + Impressions Right Impression 1. The internal, common and external carotid arteries are within normal limits. 2. The vertebral artery flow is antegrade and normal. Left Impression 1. There is <50% diameter reduction (approximately 19% by 2-D measurement) in the internal carotid artery with a peak velocity of 69/20 cm/sec and heterogeneous plaque. 2. The common and external carotid arteries are within normal limits. 3. The vertebral artery flow is antegrade and normal. Conclusions Summary Carotid duplex scanning and color flow imaging were performed bilaterally. The arteries were adequately visualized. The right internal carotid artery was normal with no plaque visualized. The left internal carotid artery had <50% hemodynamically insignificant stenosis (approximately 19% by 2-D measurement) with heterogeneous plaque. The vertebral artery flow was antegrade and normal bilaterally. Signature Velocities are measured in cm/s ; Diameters are measured in cm Carotid Right Measurements +---------+----+----+-----+ + + + !Location !PSV !EDV !Angle!%Stenosis 2D !%Stenosis Doppler !Tortuosity ! +---------+----+----+-----+ + + + !Prox CCA !101 !20.5!60 ! ! ! ! +---------+----+----+-----+ + + + !Dist CCA !111 !18 !60 ! ! ! ! +---------+----+----+-----+ + + + !Prox ICA !86.2!22.4!60 ! !Normal ! ! +---------+----+----+-----+ + + + !Dist ICA !77.1!33.6!60 ! ! ! ! +---------+----+----+-----+ + + + !Dist ECA !150 !19.8!60 ! ! ! ! +---------+----+----+-----+ + + + !Vertebral!53.9!23.8!60 ! ! ! ! +---------+----+----+-----+ + + + - There is antegrade vertebral flow noted on the right side. - Additional Measurements:ICAPSV/CCAPSV 0.78.ICAEDV/CCAEDV 1.64. Carotid Left Measurements +---------+----+----+-----+ + + + !Location !PSV !EDV !Angle!%Stenosis 2D !%Stenosis Doppler !Tortuosity ! +---------+----+----+-----+ + + + !Prox CCA !106 !28.7!60 ! ! ! ! +---------+----+----+-----+ + + + !Dist CCA !110 !22.4!60 ! ! ! ! +---------+----+----+-----+ + + + !Prox ICA !69.4!20.3!60 !19% !<50% ! ! +---------+----+----+-----+ + + + !Dist ICA !82 !30.8!60 ! ! ! ! +---------+----+----+-----+ + + + !Prox ECA !77.8!9.8 !60 ! ! ! ! +---------+----+----+-----+ + + + !Vertebral!56 !24.5!60 ! ! ! ! +---------+----+----+-----+ + + + - There is antegrade vertebral flow noted on the left side. - Additional Measurements:ICAPSV/CCAPSV 0.75.ICAEDV/CCAEDV 1.07. Performing Organization Address City/State/Zipcode Phone Number [facility] * ECG 12 lead (08/25/2018 1:01 PM TECHNICAL COMMUNICATION TEACHER) Specimen Narrative Performed At Ventricular Rate 62 BPM GE MUSE Atrial Rate 62 BPM P-R Interval 186 ms QRS Duration 78 ms Q-T Interval 410 ms QTC Calculation(Bazett) 416 ms P [place] 40 degrees R [place] 39 degrees T [place] 36 degrees Normal sinus rhythm Normal ECG No previous ECGs available Confirmed by MD Spears Roberto [id number]) on 08/26/2018 3:13:19 PM Procedure Note Interface, External Ris In - 08/26/2018 3:13 PM TECHNICAL COMMUNICATION TEACHER Ventricular Rate 62 BPM Atrial Rate 62 BPM P-R Interval 186 ms QRS Duration 78 ms Q-T Interval 410 ms QTC Calculation(Bazett) 416 ms P [place] 40 degrees R [place] 39 degrees T [place] 36 degrees Normal sinus rhythm Normal ECG No previous ECGs available Confirmed by MD Spears Roberto ([id number]) on 08/26/2018 3:13:19 PM Performing Organization Address [facility] Phone Number GE MUSE * Troponin I (08/25/2018 12:54 PM TECHNICAL COMMUNICATION TEACHER) Only the most recent of 2 results within the time period is included. Troponin I <0.01 0.00 - 0.03 ng/mL [facility] Specimen Blood Narrative Performed At Troponin I (TnI) levels must be interpreted in the context of the presenting [facility] symptoms and the clinical findings. Elevated TnI levels indicate myocardial [facility] damage, but are not specific for ischemic heart disease. Elevated TnI levels are seen in patients with other cardiac conditions (including myocarditis and congestive heart failure), and slight TnI elevations occur in patients with other conditions, including sepsis, renal failure, acidosis, acute neurological disease, and persistent tachyarrhythmia. Performing Organization Address [facility] Phone Number [phone] [place] [address] [facility] * Creatine Kinase (CK) (08/25/2018 12:54 PM TECHNICAL COMMUNICATION TEACHER) Only the most recent of 2 results within the time period is included. Total CK 58 29 - 200 U/L [facility] Specimen Blood Performing Organization Address [facility] Phone Number [place] [phone] [place] [address] [facility] * CT brain without IV contrast (08/25/2018 4:35 AM TECHNICAL COMMUNICATION TEACHER) Specimen Narrative Performed At FINAL REPORT [facility] CT Head without contrast CLINICAL HISTORY: Headache, dizziness, off balance. Headache, dizziness, off balance. TECHNIQUE: Contiguous axial images through the head without contrast. This exam was performed according to the departmental dose optimization program which includes automated exposure control, adjustment of the mA and/or kV according to the patient size, and/or use of an iterative reconstruction technique. COMPARISON: None FINDINGS: There is no CT evidence of acute infarct or intracranial hemorrhage. Ventricles are normal in size and configuration.There is no hydrocephalus, midline shift, or apparent mass effect. Basilar cisterns are patent. There are no extra-axial fluid collections. The skull is intact. Mucosal thickening in the right maxillary, frontal sinus and ethmoid air cells.. Intraorbital contents are unremarkable. IMPRESSION: No CT evidence of acute infarct, hemorrhage, or hydrocephalus. Mucosal thickening in the right maxillary, frontal sinus and ethmoid air cells, correlate for signs of acute sinusitis. Signed: Heather Gonzalez MD Report Verified Date/Time:08/25/2018 05:09:30 Reading Location: [facility] C0[facility] Transitional Reading Room Procedure Note Interface, External Ris In - 08/25/2018 5:11 AM TECHNICAL COMMUNICATION TEACHER FINAL REPORT CT Head without contrast CLINICAL HISTORY: Headache, dizziness, off balance. Headache, dizziness, off balance. TECHNIQUE: Contiguous axial images through the head without contrast. This exam was performed according to the departmental dose optimization program which includes automated exposure control, adjustment of the mA and/or kV according to the patient size, and/or use of an iterative reconstruction technique. COMPARISON: None FINDINGS: There is no CT evidence of acute infarct or intracranial hemorrhage. Ventricles are normal in size and configuration. There is no hydrocephalus, midline shift, or apparent mass effect. Basilar cisterns are patent. There are no extra-axial fluid collections. The skull is intact. Mucosal thickening in the right maxillary, frontal sinus and ethmoid air cells.. Intraorbital contents are unremarkable. IMPRESSION: No CT evidence of acute infarct, hemorrhage, or hydrocephalus. Mucosal thickening in the right maxillary, frontal sinus and ethmoid air cells, correlate for signs of acute sinusitis. Signed: Heather Gonzalez MD Report Verified Date/Time: 08/25/2018 05:09:30 Reading Location: [address] Transitional Reading Room Performing Organization Address City/State/Zipcode Phone Number GE RIS * TSH/Free T4 If Indicated (08/25/2018 2:36 AM TECHNICAL COMMUNICATION TEACHER) TSH 1.74 0.35 - 4.94 uIU/mL [facility] Specimen Blood Performing Organization Address [facility] Phone Number [address] * C-Reactive Protein (08/25/2018 2:36 AM TECHNICAL COMMUNICATION TEACHER) CRP 0.21 0.00 - 0.50 mg/dL [facility] Specimen Blood Performing Organization Address [facility] Phone Number [address] * D-dimer (08/25/2018 2:36 AM TECHNICAL COMMUNICATION TEACHER) D-Dimer, Quant 4.81 (H) <0.50 MG/L FEU [facility] Specimen Blood Narrative Performed At Intended Use: The D-Dimer Assay can be used to aid in the diagnosis of Deep Vein [facility] Thrombosis (DVT) and Pulmonary Embolism Disease (PED). [facility] In patients with low pre-test probability, various studies concerning STA Liatest D-dimer test have reported that with a cutoff value of 0.50 MG/L FEU, the Negative Predictive Value (NPV) regarding the exclusion of thrombosis is within 95-100% range. Performing Organization Address City/[facility]/Zipcode Phone Number [address] * Hemoglobin A1c (08/25/2018 2:36 AM TECHNICAL COMMUNICATION TEACHER) Hemoglobin A1C 5.3 4.3 - 6.1 % [facility] Specimen Blood Performing Organization Address [facility] Phone Number [facility] [address] [place], [place] [phone] [facility] * Lipid panel (08/25/2018 2:36 AM TECHNICAL COMMUNICATION TEACHER) Triglycerides 104Comment: Specimen slightly mg/dL [facility] Cholesterol 180Comment: Specimen slightly mg/dL [facility] HDL 35 mg/dL [facility] LDL Calculated 124 mg/dL [facility] Specimen Blood Narrative Performed At Triglyceride Reference Range: [facility] Low Risk <150 [facility] [id number] High Risk 200-499 Very High Risk>=500 Cholesterol Reference Range: Low Risk <200 [id number] High Risk>240 HDL Cholesterol Reference Range: Low Risk >=60 High Risk <40 LDL Cholesterol Reference Range: Optimal<100 Near [id number] Very High >=190 Performing Organization Address City/[facility] Phone Number [facility] [address] [place] [address] [facility] after 04/04/2018 Insurance Payer Benefit Subscriber ID Type Phone Address Plan / Group BLUE CROSS/BLUE [employer]IELD [facility] OS xxxxxxxxxxxx PPO [phone] [address] POS/PP[place] [address] O Advance Directives For more information, please contact: [address] [address] Date Inactivated Comments Code Status Date Activated Full Code 08/25/2018 1:41 AM This code status was determined by: Patient
--- OUTSIDE RECORDS SUMMARY | 2019-04-05 05:09 | XMS REPORT | Continuity of Care Document ---
Author Author [employer] Address Unknown Phone Unavailable Care Team Providers Care Lithograph Operator Name Role Phone [employer] Information [employer] Unavailable Unavailable Problems Problem Status Onset Date Classification Date Reported Comments Source Chest pain, unspecified 11/10/2017 09/27/2018 [facility] Chest pain 11/03/2017 09/27/2018 [facility] UPPER ABD PAIN Active 11/02/2017 [facility] Discharge Diagnosis: Abscess of neck 07/17/2017 07/20/2017 [facility] Discharge Diagnosis: Chest pain 07/17/2017 07/20/2017 [facility] LUMP ON BACK OF NECK Active 07/17/2017 [facility] Accelerated essential hypertension Active Problem 03/29/2019 [facility] Acid reflux Active Problem 03/29/2019 [facility] Chest pain Active Problem 03/29/2019 [facility] Gastric bypass operation Active Problem 03/29/2019 [facility] Hypertension Resolved Problem 03/29/2019 [facility] Morbid obesity Active Problem 03/29/2019 [facility] Repair of diaphragmatic hiatal hernia Active Problem 03/29/2019 [facility] Gastro-esophageal reflux disease without esophagitis 09/27/2018 [facility] Family history of ischemic heart disease and other diseases of the circulatory system 09/27/2018 [facility] Morbid obesity due to excess calories 09/27/2018 [facility] Body mass index 45.0-49.9, adult 09/27/2018 [facility] Severe obesity Active Problem 03/15/2019 [facility] History of essential hypertension Active Diagnosis 01/20/2017 [facility] Hypercholesterolemia Active Diagnosis 03/15/2019 [facility] Obstructive sleep apnea syndrome Active Problem 10/13/2018 [facility] Venous insufficiency Active Problem 03/15/2019 [facility] Sebaceous cyst Active Diagnosis 07/29/2017 [facility] Status post incision and drainage Active Diagnosis 07/29/2017 [facility] History of hiatal hernia Active Problem 11/10/2017 [facility] S/P gastric bypass Active Problem 03/15/2019 [facility] Acute URI Active Diagnosis 02/23/2017 [facility] Hematuria, unspecified type Active Diagnosis 07/14/2017 [facility] Elevated blood pressure reading Active Diagnosis 02/10/2018 [facility] Gastritis without bleeding, unspecified chronicity, unspecified gastritis type Active Problem 03/15/2019 [facility] Routine general medical examination at a health care facility Active Diagnosis 03/15/2019 [facility] Essential hypertension Active [facility] Examination Active Diagnosis 03/11/2018 [facility] B12 deficiency Active Diagnosis 03/15/2019 [facility] Epigastric pain Active Diagnosis 11/08/2017 [facility] Substernal chest pain Active Diagnosis 11/08/2017 [facility] Fatigue, unspecified type Active Diagnosis 11/08/2017 [facility] URI Active Diagnosis 08/26/2015 [facility] Essential hypertension Active Problem 08/26/2015 [facility] Screening for prostate cancer Active Diagnosis 03/15/2019 [facility] Microhematuria Active Diagnosis 03/15/2019 [facility] Medications Medication Details Route Status Patient Instructions Ordering Provider Order Date Source Atorvastatin Calcium 1 tablet Orally Active 10 mg Orally Once a day Forrest Adamson 03/14/2019 [facility] Famotidine 1 tablet at bedtime Orally Active 20 mg Orally Once a day Forrest Adamson 11/09/2017 [facility] Famotidine 1 tablet at bedtime by mouth Active 20 mg by mouth Once a day Shabbir 11/09/2017 [facility] Aspirin 81 MG Chewable Tablet 81 mg=1 tab, PO, Daily, # 30 tab, 0 Refill(s) Active 11/03/2017 [facility] Famotidine 20 MG Oral Tablet [Pepcid] 20 mg=1 tab, PO, BID, # 60 tab, 0 Refill(s) Active 11/03/2017 [facility] Acetaminophen 300 MG / Codeine Phosphate 30 MG Oral Tablet [Tylenol with Codeine #3] 1 - 2 tab, PO, Q4H, PRN Pain, X 2 day, # 20 tab, 0 Refill(s) No Longer Active 07/18/2017 [facility] Acetaminophen 325 MG / Hydrocodone Bitartrate 10 MG Oral Tablet [Bristol 10/325] 1 tab, Route: PO, Drug Form: TAB, Dosing Weight 138.636, kg, ONCE, STAT, Start date: 07/17/17 17:53:00 FISHER TROLL LINE, Stop date: 07/17/17 17:53:00 CSTNotes: Do not exceed 4gm/day of acetaminophen. (Same as: Bristol 325/10) Inactive 07/17/2017 [facility] Saline Flush 0.9% 10 mL, Route: IVP, Drug Form: INJ, Dosing Weight 138.636, kg, PRN, PRN Line Flush, Start date: 07/17/17 17:24:00 FISHER TROLL LINE, Duration: 30 day, Stop date: 08/16/17 17:23:00 CSTNotes: (Same as: BD Posiflush) Inactive 07/17/2017 [facility] Lisinopril-Hydrochlorothiazide 1 tablet by mouth Active 20-25 MG by mouth Once a day (LAST REFILL. NEEDS TO BE SEEN Ghebranious 07/12/2017 [facility] Clindamycin HCl 1 capsule Orally Active 300 MG Orally every 8 hrs Ghebranious 07/12/2017 [facility] Bromfed DM 10 ml as needed Orally Active 30-2-10 MG/5ML Orally every 4 -6hrs PRN Brody 02/21/2017 [facility] Amoxicillin 1 tablet Orally Active 500 mg Orally every 12 hrs Hickey 08/24/2015 [facility] Bromfed DM 10 ml as needed Orally Active 30-2-10 MG/5ML Orally every 6 hrs Hiceky 08/24/2015 [facility] NO OTC meds taken not defined NA Active Ghebranious [facility] Aspir-81 1 tablet Orally Active 81 MG Orally Once a day Shabbir [facility] Pepto-Bismol 2 tablets as needed Orally Active 262 MG Orally 8 time(s) a day Aniket [facility] Pepto-Bismol 2 tablets as needed Orally Active 262 MG Orally 8 time(s) a day Brody [facility] NO OTC meds taken Unknown NA Active Ed[place]ira [facility] Lisinopril-Hydrochlorothiazide 1 tablet by mouth Active 20-25 MG by mouth Once a day Shabbir [facility] Allergies, Adverse Reactions, Alerts Substance Category Reaction Severity Reaction type Status Date Reported Comments Source N.K.D.A. Adverse Reaction Info Not Available Adverse Reaction Active 03/08/2019 [facility] No Known Medication Allergies Assertion Drug allergy Medical Group Immunizations No Data Provided for This Section Results Order Name Results Value Reference Range Date Interpretation Comments Source CARDIAC ENZYMES Troponin-I <0.02 0.00 - 0.40 11/03/2017 [facility] HEMATOLOGY D-Dimer 2.79 11/03/2017 [facility] CARDIAC ENZYMES CK MB Index 1.1 0.0 - 2.5 11/03/2017 [facility] CARDIAC ENZYMES Total CK 88 12 - 191 11/03/2017 [facility] CARDIAC ENZYMES Troponin-I <0.02 0.00 - 0.40 11/03/2017 [facility] CARDIAC ENZYMES CK MB 1.0 0.5 - 3.6 11/03/2017 [facility] CARDIAC ENZYMES BNP 4 <=100 pg/mL 11/03/2017 [facility] CHEM PANEL eGFR 81 11/03/2017 Result Comment: The eGFR is calculated [...] should be multiplied by the estimated BMI. [facility] CHEM PANEL Globulin 3.9 2.7 - 4.2 11/03/2017 [facility] CHEM PANEL A/G Ratio 1.0 0.7 - 1.6 11/03/2017 [facility] CHEM PANEL BUN 17 7 - 22 11/03/2017 [facility] CHEM PANEL Sodium Lvl 136 135 - 145 11/03/2017 [facility] CHEM PANEL Creatinine Lvl 1.02 0.50 - 1.40 11/03/2017 [facility] CHEM PANEL Glucose Lvl 90 70 - 99 11/03/2017 [facility] CHEM PANEL Calcium Lvl 8.4 8.5 - 10.5 11/03/2017 [facility] CHEM PANEL Total Protein 7.7 6.4 - 8.4 11/03/2017 [facility] CHEM PANEL Albumin Lvl 3.8 3.5 - 5.0 11/03/2017 [facility] CHEM PANEL ALT 19 0 - 65 11/03/2017 [facility] CHEM PANEL Potassium Lvl 3.9 3.5 - 5.1 11/03/2017 [facility] CHEM PANEL CO2 27 24 - 32 11/03/2017 [facility] CHEM PANEL Chloride Lvl 102 95 - 109 11/03/2017 [facility] CHEM PANEL AGAP 10.9 10.0 - 20.0 11/03/2017 [facility]M PANEL B/C Ratio 17 6 - 25 11/03/2017 [facility] CHEM PANEL AST 11 0 - 37 11/03/2017 [facility] CHEM PANEL Bili Total 0.7 0.2 - 1.3 11/03/2017 [facility] CHEM PANEL Alk Phos 67 39 - 136 11/03/2017 [facility] HEMATOLOGY Segs 64.1 45.0 - 75.0 11/03/2017 [facility] HEMATOLOGY Eosinophils 4.2 0.0 - 4.0 11/03/2017 [facility] HEMATOLOGY Basophils 0.4 0.0 - 1.0 11/03/2017 [facility] HEMATOLOGY Lymphocytes 22.2 20.0 - 40.0 11/03/2017 [facility] HEMATOLOGY Monocytes 9.1 2.0 - 12.0 11/03/2017 [facility] HEMATOLOGY Monocytes # 0.8 0.0 - 0.8 11/03/2017 [facility] HEMATOLOGY Eosinophils # 0.4 0.0 - 0.5 11/03/2017 [facility] HEMATOLOGY Neutrophils # 5.7 1.5 - 8.1 11/03/2017 [facility] HEMATOLOGY Lymphocytes # 2.0 1.0 - 5.5 11/03/2017 [facility] HEMATOLOGY PTT 29.7 22.9 - 35.8 11/03/2017 [facility] INR 1.00 0.85 - 1.17 11/03/2017 [facility] PT 13.2 12.0 - 14.7 11/03/2017 [facility] Hct 44.6 42.0 - 54.0 11/03/2017 [facility] RBC 4.69 4.70 - 6.10 11/03/2017 [facility] Hgb 15.6 14.0 - 18.0 11/03/2017 [facility] WBC 8.8 3.7 - 10.4 11/03/2017 [facility] MPV 6.6 7.4 - 10.4 11/03/2017 [facility] RDW 13.4 11.5 - 14.5 11/03/2017 [facility] Platelet 254 133 - 450 11/03/2017 [facility] MCHC 35.0 32.0 - 36.0 11/03/2017 [facility] MCV 95.1 80.0 - 94.0 11/03/2017 [facility] MCH 33.3 27.0 - 31.0 11/03/2017 [facility] CARDIAC ENZYMES Total CK 91 12 - 191 07/18/2017 [facility] CARDIAC ENZYMES Troponin-I <0.02 0.00 - 0.40 07/18/2017 [facility] CARDIAC ENZYMES CK MB 0.9 0.5 - 3.6 07/18/2017 [facility] CARDIAC ENZYMES CK MB Index 1.0 0.0 - 2.5 07/18/2017 [facility] CHEM PANEL eGFR 78 07/18/2017 Result Comment: The eGFR is calculated [...] should be multiplied by the estimated BMI. [facility] CHEM PANEL Alk Phos 72 39 - 136 07/18/2017 [facility] CHEM PANEL B/C Ratio 17 6 - 25 07/18/2017 [facility] CHEM PANEL AGAP 12.3 10.0 - 20.0 07/18/2017 [facility] CHEM PANEL Bili Total 0.5 0.2 - 1.3 07/18/2017 [facility] CHEM PANEL Globulin 3.8 2.7 - 4.2 07/18/2017 [facility] CHEM PANEL A/G Ratio 0.9 0.7 - 1.6 07/18/2017 [facility] CHEM PANEL ALT 18 0 - 65 07/18/2017 [facility] CHEM PANEL Albumin Lvl 3.6 3.5 - 5.0 07/18/2017 [facility] CHEM PANEL AST 18 0 - 37 07/18/2017 [facility] CHEM PANEL Sodium Lvl 135 135 - 145 07/18/2017 [facility] CHEM PANEL Potassium Lvl 4.3 3.5 - 5.1 07/18/2017 [facility] CHEM PANEL Chloride Lvl 104 95 - 109 07/18/2017 [facility] CHEM PANEL Total Protein 7.4 6.4 - 8.4 07/18/2017 [facility] CHEM PANEL CO2 23 24 - 32 07/18/2017 [facility] CHEM PANEL Calcium Lvl 8.3 8.5 - 10.5 07/18/2017 [facility] CHEM PANEL BUN 18 7 - 22 07/18/2017 [facility] CHEM PANEL Creatinine Lvl 1.05 0.50 - 1.40 07/18/2017 [facility] CHEM PANEL Glucose Lvl 94 70 - 99 07/18/2017 [facility] HEMATOLOGY MCH 33.8 27.0 - 31.0 07/17/2017 [facility] HEMATOLOGY MCV 96.6 80.0 - 94.0 07/17/2017 [facility] HEMATOLOGY MPV 6.7 7.4 - 10.4 07/17/2017 [facility] HEMATOLOGY RDW 13.4 11.5 - 14.5 07/17/2017 [facility] HEMATOLOGY MCHC 35.0 32.0 - 36.0 07/17/2017 [facility] HEMATOLOGY Platelet 238 133 - 450 07/17/2017 [facility] HEMATOLOGY Hgb 17.1 14.0 - 18.0 07/17/2017 [facility] HEMATOLOGY Hct 49.0 42.0 - 54.0 07/17/2017 [facility] HEMATOLOGY RBC 5.07 4.70 - 6.10 07/17/2017 [facility] HEMATOLOGY WBC 8.6 3.7 - 10.4 07/17/2017 [facility] HEMATOLOGY Monocytes # 0.7 0.0 - 0.8 07/17/2017 [facility] Eosinophils 2.4 0.0 - 4.0 07/17/2017 [facility] Basophils 1.0 0.0 - 1.0 07/17/2017 [facility] Segs 62.6 45.0 - 75.0 07/17/2017 [facility] Monocytes 8.6 2.0 - 12.0 07/17/2017 [facility] HEMATOLOGY Lymphocytes 25.4 20.0 - 40.0 07/17/2017 [facility] Basophils # 0.1 0.0 - 0.2 07/17/2017 [facility] HEMATOLOGY Eosinophils # 0.2 0.0 - 0.5 07/17/2017 [facility] Segs-Bands # 5.4 1.5 - 8.1 07/17/2017 [facility] Lymphocytes # 2.2 1.0 - 5.5 07/17/2017 [facility] Pathology Reports No Data Provided for This Section Diagnostic Reports Report Value Date Source Chest Pulmonary Embolism CTA CT CHEST WITH [...] A 3.3 cm right thyroid nodule. The [employer] (ACR) consensus guidelines for incidental thyroid nodules detected on CT or MRI recommended: Age < 35 years < 1 cm: No further evaluation >=1 cm: Evaluate with thyroid ultrasound Age >=35 years < 1.5 cm: No further evaluation >=1.5 cm: Evaluate with thyroid ultrasound SL:16 11/03/2017 [facility] Chest 2 views DX Clinical Indication: - [...] lower lobe nonspecific airspace opacity/infiltrate, new. SL: DONTAE-PC 11/03/2017 [facility] Chest 1view DX 1 view chest portable: HISTORY: Chest pain. FINDINGS: The right diaphragm is elevated. There is minimal atelectasis above the diaphragm. The lungs are clear otherwise. Heart and mediastinal contour stable from 05/14/2012. No pleural fluid or pneumothorax seen. IMPRESSION: Minimal right basilar atelectasis. SL: [id number] 07/17/2017 [facility] Consultation Notes No Data Provided for This Section Discharge Summaries No Data Provided for This Section History and Physicals No Data Provided for This Section Vital Signs Vital Sign Value Date Comments Source Weight 329 03/08/2019 [facility] Height 70 03/08/2019 [facility] Heart Rate 76 03/08/2019 [facility] Diastolic (mm Hg) 76 03/08/2019 [facility] Systolic (mm Hg) 110 03/08/2019 [facility] Diastolic (mm Hg) 72 02/16/2018 [facility] Systolic (mm Hg) 120 11/06/2017 [facility] Respitory Rate 19 11/03/2017 [facility] Systolic (mm Hg) 111 11/03/2017 [facility] Diastolic (mm Hg) 64 11/03/2017 [facility] Temperature Oral (F) 98.4 F 11/03/2017 [facility] Respitory Rate 17 11/03/2017 [facility] Height 175.26 cm 11/03/2017 [facility] Systolic (mm Hg) 114 11/03/2017 [facility] Diastolic (mm Hg) 79 11/03/2017 [facility] Heart Rate 67 11/03/2017 [facility] BMI Calculated 45.43 11/03/2017 [facility] Weight 139.545 11/03/2017 [facility] Temperature Oral (F) 98.6 F 11/03/2017 [facility] Respitory Rate 22 11/03/2017 [facility] Height 177.8 cm 08/16/2017 [facility] BMI [...] [facility]oc Systolic (mm Hg) 122 07/19/2017 [facility] Systolic (mm Hg) 123 07/18/2017 [facility] Diastolic (mm Hg) 82 07/18/2017 [facility] Temperature Oral (F) 98.4 F 07/18/2017 [facility] Respitory Rate 18 07/18/2017 [facility] Heart Rate 65 07/18/2017 [facility] Temperature Oral (F) 98.7 F 07/17/2017 [facility] Height 177.8 cm 07/17/2017 [facility] Weight 138.636 07/17/2017 [facility] BMI Calculated 43.85 07/17/2017 [facility] Respitory Rate 18 07/17/2017 [facility] Systolic (mm Hg) 145 07/17/2017 [facility] Diastolic (mm Hg) 85 07/17/2017 [facility] Heart Rate 63 07/17/2017 [facility] Weight 309 07/12/2017 [facility] Provider ADM Date DC Date Status Source [facility] sore throat [id number] 08/24/2015 08/24/2015 [facility] Emergency [id number] Gilberto Mays 07/17/2017 07/18/2017 [facility] Outpatient [id number] THOMAS JOSE 08/01/2017 Active [facility] Outpatient [id number] Thomas Jose 08/01/2017 08/02/2017 [facility] Outpatient [id number] THOMAS JOSE 08/16/2017 [facility] Outpatient [id number] Thomas Jose 08/16/2017 08/17/2017 [facility] Phone Message [id number] 08/22/2017 08/24/2017 [facility] Emergency [id number] Heather Hensleyqi 11/03/2017 11/03/2017 [facility] Outpatient [id number] Miteshaustin Turner 03/27/2019 Active [facility] [place] [facility] Pre-Reg [id number] [facility] 03/27/2019 03/27/2019 [facility] Procedures Procedure Code Date Perfomer Comments Source Excision, benign lesion including margins, except skin tag (unless listed elsewhere), trunk, arms or legs; excised diameter 3.1 to 4.0 cm [id number] 08/16/2017 [facility] Repair, intermediate, wounds of scalp, axillae, trunk and/or extremities (excluding hands and feet); 2.6 cm to 7.5 cm [id number] 08/16/2017 [facility] Appendectomy [id number] [facility] Gastric bypass [id number] [facility] Procedure on vein [id number] [facility] Tonsillectomy [id number] [facility] Appendectomy [id number] [facility] Gastric bypass [id number] [facility] Procedure on vein [id number] [facility] Tonsillectomy [id number] [facility] Assessment and Plan No Data Provided for This Section Plan of Care No Data Provided for This Section Social History Social History Date Source Social History TypeResponse Smoking Status Never smoker; Previous treatment: None; Ready to change: No; Concerns about tobacco use in household: No; Exposure to Tobacco Smoke None; Cigarette Smoking Last 365 Days Yes; Reg Smoking Cessation Counseling No entered on: 11/03/17 11/03/2017 [facility] Social History TypeResponse Smoking Status Never smoker; Previous treatment: None; Ready to change: No; Concerns about tobacco use in household: No; Exposure to Tobacco Smoke None; Cigarette Smoking Last 365 Days Yes; Reg Smoking Cessation Counseling No entered on: 11/03/17 11/03/2017 [facility] Social History ElementQualifiersDate Reported children . 1 Aug 24, 2015 Tobacco Use: . Are you a: never smoker Aug 24, 2015 Use of recreational / street drugs? . Answer: No Aug 24, 2015 Marital Status: . Aug 24, 2015 Do you drink alcohol? . Status: Yes, Type: Wine, Liquor, How often? Weekly, How much? 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
--- OUTSIDE RECORDS SUMMARY | 2019-04-05 05:10 | XMS REPORT ---
Author Author [facility] Address Unknown Phone Unavailable Care Team Providers Care Sew On Operator Name Role Phone Jennifer MARTINEZ Unavailable Unavailable Steven CAMPA Unavailable Unavailable Lay SPRING Unavailable Unavailable Problems This patient has no known problems. Allergies, Adverse Reactions, Alerts This patient has no known allergies or adverse reactions. Medications This patient has no known medications. Results Test Description Test Time Test Comments Text Results Atomic Results Result Comments CT ABDOMEN/PELVIS WO 2019-03-15 23:07:00 [place] [address] Patient Name: HUNG MCHUGH MR #: [id number] : 1960 Age/Sex: 58/M Req #: [id number] Adm Physician: Ordered by: HUNG MARTINEZ MD Report #: [id number] Location: ER Room/Bed: Procedure: [id number] CT/CT ABDOMEN/PELVIS WO Exam Date: 03/15/19 Exam Time: 2252 REPORT STATUS: Signed EXAM: CT of the abdomen and pelvis WITHOUT contrast HISTORY: Pain, left side, history of appendectomy and gastric bypass COMPARISON: None available. TECHNIQUE: The abdomen and pelvis were scanned utilizing a multidetector helical scanner. Coronal and sagittal reformats are available. PROTOCOL: Renal colic IV CONTRAST: None, which limits sensitivity and specificity of evaluation of the soft tissues and vascular structures. ORAL CONTRAST: None, which limits sensitivity and specificity of evaluation of the bowel. RADIATION DOSE: Total DLP: 1476.52 mGy*cm Estimated effective dose: (DLP x 0.015 x size factor) Dose modulation, iterative reconstruction, and/or weight based adjustment of the mA/kV was utilized to reduce the radiation dose to as low as reasonably achievable. COMPLICATIONS: None FINDINGS: LOWER THORAX: Mild right greater than left atelectasis versus scarring. Mild bronchial wall thickening. HEPATOBILIARY: No definite focal hepatic lesions. No biliary ductal dilatation. The gallbladder is unremarkable. SPLEEN: No splenomegaly. PANCREAS: No focal masses or ductal dilatation. ADRENALS: No adrenal nodule. KIDNEYS/URETERS: Right: * A 5 mm calcification at the interpolar region. * A 3 mm calcification near the inferior pole. * A 2.4 cm interpolar region fluid density, compatible with a cyst. * No hydronephrosis. Left: * A 1.6 cm fluid density at the upper interpolar region, compatible with a cyst. * A 6 mm calcific density near the ureteropelvic junction. * Mild hydroureteronephrosis. * Perinephric fat stranding. PELVIC ORGANS/BLADDER: The urinary bladder is partially decompressed. Borderline enlargement of prostate. PERITONEUM / RETROPERITONEUM: No free air or fluid. GI TRACT: No bowel dilation. Postsurgical changes at the gastroesophageal junction, stomach, and left upper quadrant the abdomen, compatible with provided history of gastric bypass. Post surgical changes compatible with appendectomy. LYMPH NODES: No pathologically enlarged lymph nodes. VESSELS: Scattered atherosclerotic vascu lar calcifications, including the coronary arteries. BONES and JOINTS: No aggressive osseous lesion or acute fracture. SOFT TISSUES: Unremarkable. IMPRESSION: 1. A 6 mm left obstructing distal ureteral stone, associated mild hydroureteronephrosis. 2. A 5 mm and 3 mm nonobstructing right renal stone. 3. Coronary atherosclerosis. Signed by: Angela GómezO., M.M.M. on 03/15/2019 11:22 PM Dictated By: LEVI PIEDRA DO 21 Transcribed By: AYDEN on 03/15/192321 COPY TO: HUNG MARTINEZ MD PHOSPHORUS 2018-08-27 04:54:00 PHOSPHORUS (BEAKER) (test tgeq=605) 3.4 mg/dL 2.3-4.7 [id number] 04:54:00* Test Item Value Reference Range Comments MAGNESIUM (BEAKER) (test nsnw=928) 2.2 mg/dL 1.6-2.6 BASIC METABOLIC [id number] 04:54:00* Test Item Value Reference Range Comments SODIUM (BEAKER) (test ebqc=401) 138 meq/L 136-145 POTASSIUM (BEAKER) (test yzly=020) 4.4 meq/L 3.5-5.1 CHLORIDE (BEAKER) (test eqph=271) 106 meq/L 98-107 CO2 (BEAKER) (test odjw=909) 24 meq/L 22-29 BLOOD UREA NITROGEN (BEAKER) (test vloe=450) 18 mg/dL 7-21 CREATININE (BEAKER) (test ytie=872) 1.02 mg/dL 0.57-1.25 GLUCOSE RANDOM (BEAKER) (test umdd=136) 98 mg/dL 70-105 CALCIUM (BEAKER) (test nxja=192) 8.4 mg/dL 8.4-10.2 EGFR (BEAKER) (test vgnp=1680) 75 mL/min/1.73 sq m ESTIMATED GFR IS NOT ACCURATE CREATININE CLEARANCE IN PREDICTING GLOMERULAR FILTRATION RATE. ESTIMATED GFR IS NOT APPLICABLE FOR DIALYSIS PATIENTS. HEPATIC FUNCTION [id number] 04:54:00* Test Item Value Reference Range Comments TOTAL PROTEIN (BEAKER) (test fdbh=853) 6.4 gm/dL 6.0-8.3 ALBUMIN (BEAKER) (test neoo=0585) 3.6 g/dL 3.5-5.0 BILIRUBIN TOTAL (BEAKER) (test nxad=601) 0.6 mg/dL 0.2-1.2 BILIRUBIN DIRECT (BEAKER) (test etzn=312) 0.2 mg/dL 0.1-0.5 ALKALINE PHOSPHATASE (BEAKER) (test jkkx=176) 57 U/L 40-150 AST (SGOT) (BEAKER) (test krzf=382) 13 U/L 5-34 ALT (SGPT) (BEAKER) (test jetp=777) 14 U/L 6-55 CBC W/PLT COUNT & AUTO [id number] 04:31:00* Test Item Value Reference Range Comments WHITE BLOOD CELL COUNT (BEAKER) (test jxtj=072) 6.3 K/ L 3.5-10.5 RED BLOOD CELL COUNT (BEAKER) (test myjw=595) 4.33 M/ L 4.63-6.08 HEMOGLOBIN (BEAKER) (test csag=054) 14.3 GM/DL 13.7-17.5 HEMATOCRIT (BEAKER) (test laqt=964) 42.2 % 40.1-51.0 MEAN CORPUSCULAR VOLUME (BEAKER) (test yscw=825) 97.5 fL 79.0-92.2 MEAN CORPUSCULAR HEMOGLOBIN (BEAKER) (test svyr=237) 33.0 pg 25.7-32.2 MEAN CORPUSCULAR HEMOGLOBIN CONC (BEAKER) (test rmbe=048) 33.9 GM/DL 32.3-36.5 RED CELL DISTRIBUTION WIDTH (BEAKER) (test ygug=057) 13.1 % 11.6-14.4 PLATELET COUNT (BEAKER) (test gsoi=509) 210 K/CU MM 150-450 MEAN PLATELET VOLUME (BEAKER) (test rsmr=619) 8.6 fL 9.4-12.4 NUCLEATED RED BLOOD CELLS (BEAKER) (test vmhe=188) 0 /100 WBC 0-0 NEUTROPHILS RELATIVE PERCENT (BEAKER) (test wzkx=938) 56 % LYMPHOCYTES RELATIVE PERCENT (BEAKER) (test jwoj=302) 28 % MONOCYTES RELATIVE PERCENT (BEAKER) (test epqq=787) 8 % EOSINOPHILS RELATIVE PERCENT (BEAKER) (test aqic=782) 7 % BASOPHILS RELATIVE PERCENT (BEAKER) (test rflc=039) 1 % NEUTROPHILS ABSOLUTE COUNT (BEAKER) (test ijvo=254) 3.53 K/ L 1.78-5.38 LYMPHOCYTES ABSOLUTE COUNT (BEAKER) (test feil=966) 1.77 K/ L 1.32-3.57 MONOCYTES ABSOLUTE COUNT (BEAKER) (test vzqw=031) 0.49 K/ L 0.30-0.82 EOSINOPHILS ABSOLUTE COUNT (BEAKER) (test ysaw=121) 0.46 K/ L 0.04-0.54 BASOPHILS ABSOLUTE COUNT (BEAKER) (test vglc=053) 0.05 K/ L 0.01-0.08 IMMATURE GRANULOCYTES-RELATIVE PERCENT (BEAKER) (test ptpw=7776) 0 % 0-1 [id number] 06:03:00* Test Item Value Reference Range Comments PHOSPHORUS (BEAKER) (test psvr=254) 3.8 mg/dL 2.3-4.7 [id number] 06:03:00* Test Item Value Reference Range Comments MAGNESIUM (BEAKER) (test isjq=235) 2.2 mg/dL 1.6-2.6 BASIC METABOLIC [id number] 06:03:00* Test Item Value Reference Range Comments SODIUM (BEAKER) (test chuu=378) 137 meq/L 136-145 POTASSIUM (BEAKER) (test tqon=415) 4.1 meq/L 3.5-5.1 CHLORIDE (BEAKER) (test xrnl=240) 105 meq/L 98-107 CO2 (BEAKER) (test vrrw=536) 24 meq/L 22-29 BLOOD UREA NITROGEN (BEAKER) (test pjej=668) 20 mg/dL 7-21 CREATININE (BEAKER) (test offz=440) 0.99 mg/dL 0.57-1.25 GLUCOSE RANDOM (BEAKER) (test utrv=488) 93 mg/dL 70-105 CALCIUM (BEAKER) (test vcwg=524) 8.6 mg/dL 8.4-10.2 EGFR (BEAKER) (test bqeo=9507) 78 mL/min/1.73 sq m ESTIMATED GFR IS NOT ACCURATE CREATININE CLEARANCE IN PREDICTING GLOMERULAR FILTRATION RATE. ESTIMATED GFR IS NOT APPLICABLE FOR DIALYSIS PATIENTS. HEPATIC FUNCTION [id number] 06:03:00* Test Item Value Reference Range Comments TOTAL PROTEIN (BEAKER) (test rlfx=007) 6.5 gm/dL 6.0-8.3 ALBUMIN (BEAKER) (test knhb=0279) 3.6 g/dL 3.5-5.0 BILIRUBIN TOTAL (BEAKER) (test aief=772) 0.8 mg/dL 0.2-1.2 BILIRUBIN DIRECT (BEAKER) (test dtim=908) 0.3 mg/dL 0.1-0.5 ALKALINE PHOSPHATASE (BEAKER) (test lwgn=597) 58 U/L 40-150 AST (SGOT) (BEAKER) (test cfle=539) 12 U/L 5-34 ALT (SGPT) (BEAKER) (test yqet=109) 13 U/L 6-55 CBC W/PLT COUNT & AUTO [id number] 05:38:00* Test Item Value Reference Range Comments WHITE BLOOD CELL COUNT (BEAKER) (test vbll=080) 6.6 K/ L 3.5-10.5 RED BLOOD CELL COUNT (BEAKER) (test smek=275) 4.39 M/ L 4.63-6.08 HEMOGLOBIN (BEAKER) (test hrqd=476) 14.7 GM/DL 13.7-17.5 HEMATOCRIT (BEAKER) (test ohad=214) 42.4 % 40.1-51.0 MEAN CORPUSCULAR VOLUME (BEAKER) (test flgw=304) 96.6 fL 79.0-92.2 MEAN CORPUSCULAR HEMOGLOBIN (BEAKER) (test typm=769) 33.5 pg 25.7-32.2 MEAN CORPUSCULAR HEMOGLOBIN CONC (BEAKER) (test xerc=589) 34.7 GM/DL 32.3-36.5 RED CELL DISTRIBUTION WIDTH (BEAKER) (test dsdr=693) 13.2 % 11.6-14.4 PLATELET COUNT (BEAKER) (test yzyd=200) 218 K/CU MM 150-450 MEAN PLATELET VOLUME (BEAKER) (test ihal=856) 8.6 fL 9.4-12.4 NUCLEATED RED BLOOD CELLS (BEAKER) (test bklk=986) 0 /100 WBC 0-0 NEUTROPHILS RELATIVE PERCENT (BEAKER) (test icnd=885) 58 % LYMPHOCYTES RELATIVE PERCENT (BEAKER) (test qjdb=564) 27 % MONOCYTES RELATIVE PERCENT (BEAKER) (test ocpd=434) 8 % EOSINOPHILS RELATIVE PERCENT (BEAKER) (test aynx=319) 7 % BASOPHILS RELATIVE PERCENT (BEAKER) (test wgvk=972) 1 % NEUTROPHILS ABSOLUTE COUNT (BEAKER) (test azkf=707) 3.82 K/ L 1.78-5.38 LYMPHOCYTES ABSOLUTE COUNT (BEAKER) (test pjfp=208) 1.76 K/ L 1.32-3.57 MONOCYTES ABSOLUTE COUNT (BEAKER) (test wvub=004) 0.54 K/ L 0.30-0.82 EOSINOPHILS ABSOLUTE COUNT (BEAKER) (test otrf=961) 0.46 K/ L 0.04-0.54 BASOPHILS ABSOLUTE COUNT (BEAKER) (test vful=663) 0.04 K/ L 0.01-0.08 IMMATURE GRANULOCYTES-RELATIVE PERCENT (BEAKER) (test sxan=0088) 0 % 0-1 TROPONIN [id number] 13:39:00* Test Item Value Reference Range Comments TROPONIN I (BEAKER) (test fzle=233) < ng/mL 0.00-0.03 Troponin I (TnI) levels must be interpreted in the context of the presenting sym ptoms and the clinical findings. Elevated TnI levels indicate myocardial damage, but are not specific for ischemic heart disease. Elevated TnI levels are seen in patients with other cardiac conditions (including myocarditis and congestive h eart failure), and slight TnI elevations occur in patients with other conditions , including sepsis, renal failure, acidosis, acute neurological disease, and per sistent tachyarrhythmia.CREATINE KINASE (CK)2018-08-25 13:33:00* Test Item Value Reference Range Comments CREATINE KINASE TOTAL (GAGANDEEPAKER) (test ijzr=587) 58 U/L 29-200 HEMOGLOBIN [id number] 10:07:00* Test Item Value Reference Range Comments HEMOGLOBIN A1C (BEAKER) (test fiwj=088) 5.3 % 4.3-6.1 C-REACTIVE [id number] 08:04:00* Test Item Value Reference Range Comments C-REACTIVE PROTEIN (BEAKER) (test vbxn=270) 0.21 mg/dL 0.00-0.50 TROPONIN [id number] 07:25:00* Test Item Value Reference Range Comments TROPONIN I (BEAKER) (test wsim=264) < ng/mL 0.00-0.03 Troponin I (TnI) levels must be interpreted in the context of the presenting sym ptoms and the clinical findings. Elevated TnI levels indicate myocardial damage, but are not specific for ischemic heart disease. Elevated TnI levels are seen in patients with other cardiac conditions (including myocarditis and congestive h eart failure), and slight TnI elevations occur in patients with other conditions , including sepsis, renal failure, acidosis, acute neurological disease, and per sistent tachyarrhythmia.CREATINE KINASE (CK)2018-08-25 07:18:00* Test Item Value Reference Range Comments CREATINE KINASE TOTAL (BEAKER) (test ybiw=085) 52 U/L 29-200 CT, BRAIN, WITHOUT [id number] 05:09:00Reason for exam:->Headache, dizziness, off balance.FINAL REPORT CT Head without contrast CLINICAL HISTORY: Headache, dizziness, off balance.Headache, dizziness, off balance. TECHNIQUE: Contiguous axial images [...] signs of acute sinusitis. Signed: Heather Gonzalez Verified Date/Time: 08/25/2018 05:09:30 Reading Location: [address] Reading Room /FREE T4 IF [id number] 03:53:00* Test Item Value Reference Range Comments THYROID STIMULATING HORMONE (BEAKER) (test mjda=862) 1.74 uIU/mL 0.35-4.94 BASIC METABOLIC [id number] 03:37:00* Test Item Value Reference Range Comments SODIUM (BEAKER) (test wvwv=775) 137 meq/L 136-145 POTASSIUM (BEAKER) (test fmfv=610) 4.0 meq/L 3.5-5.1 Specimen slightly hemolyzed CHLORIDE (BEAKER) (test idbx=366) 103 meq/L 98-107 CO2 (BEAKER) (test hawc=540) 26 meq/L 22-29 BLOOD UREA NITROGEN (BEAKER) (test bxav=677) 16 mg/dL 7-21 CREATININE (BEAKER) (test rpez=192) 1.12 mg/dL 0.57-1.25 Specimen slightly hemolyzed GLUCOSE RANDOM (BEAKER) (test qdqf=173) 101 mg/dL 70-105 CALCIUM (BEAKER) (test cncs=098) 8.7 mg/dL 8.4-10.2 EGFR (BEAKER) (test gcpf=5897) 67 mL/min/1.73 sq m ESTIMATED GFR IS NOT ACCURATE CREATININE CLEARANCE IN PREDICTING GLOMERULAR FILTRATION RATE. ESTIMATED GFR IS NOT APPLICABLE FOR DIALYSIS PATIENTS. [id number] 03:37:00* Test Item Value Reference Range Comments MAGNESIUM (BEAKER) (test bxvj=595) 2.1 mg/dL 1.6-2.6 Specimen slightly hemolyzed [id number] 03:37:00* Test Item Value Reference Range Comments PHOSPHORUS (BEAKER) (test rmzg=390) 3.8 mg/dL 2.3-4.7 Specimen slightly hemolyzed LIPID [id number] 03:37:00* Test Item Value Reference Range Comments TRIGLYCERIDES (BEAKER) (test ttzc=057) 104 mg/dL Specimen slightly hemolyzed CHOLESTEROL (BEAKER) (test bniv=199) 180 mg/dL Specimen slightly hemolyzed HDL CHOLESTEROL (BEAKER) (test gbhx=170) 35 mg/dL LDL CHOLESTEROL CALCULATED (BEAKER) (test rodg=511) 124 mg/dL Triglyceride Reference Range: Low Risk <150 Borderline 150-199 High Risk 200-499 Very High Risk >=500Cholesterol Reference Range: Low Risk <200 Borderline 200-239 High Risk >240HDL Cholesterol Reference Range: Low Risk >=60 High Risk <40LDL Cholesterol Reference Range: Optimal <100 Near Optimal 100-129 Borderline 130-159 High 160-189 Very High >=190 HEPATIC FUNCTION [id number] 03:37:00* Test Item Value Reference Range Comments TOTAL PROTEIN (BEAKER) (test qwrr=561) 6.6 gm/dL 6.0-8.3 Specimen slightly hemolyzed ALBUMIN (BEAKER) (test pwjb=1959) 3.7 g/dL 3.5-5.0 Specimen slightly hemolyzed BILIRUBIN TOTAL (BEAKER) (test himr=366) 0.9 mg/dL 0.2-1.2 Specimen slightly hemolyzed BILIRUBIN DIRECT (BEAKER) (test btld=633) 0.3 mg/dL 0.1-0.5 Specimen slightly hemolyzed ALKALINE PHOSPHATASE (BEAKER) (test mrhg=832) 56 U/L 40-150 AST (SGOT) (BEAKER) (test nszt=933) 13 U/L 5-34 Specimen slightly hemolyzed ALT (SGPT) (BEAKER) (test zkit=232) 14 U/L 6-55 Specimen slightly hemolyzed [id number] 03:14:00* Test Item Value Reference Range Comments D-DIMER QUANTITATIVE (BEAKER) (test hefk=891) 4.81 MG/L FEU <0.50 Intended Use: The D-Dimer Assay can be used to aid in the diagnosis of Deep Vein Thrombosis (DVT) and Pulmonary Embolism Disease (PED).In patients with low pre- test probability, various studies concerning STA Liatest D-dimer test have repor roberto that with a cutoff value of 0.50 MG/L FEU, the Negative Predictive Value (LAMINATION BUILDER V) regarding the exclusion of thrombosis is within 95-100% range.CBC W/PLT COUNT & AUTO [id number] 02:51:00* Test Item Value Reference Range Comments WHITE BLOOD CELL COUNT (BEAKER) (test hkxb=692) 7.7 K/ L 3.5-10.5 RED BLOOD CELL COUNT (BEAKER) (test pbqx=390) 4.30 M/ L 4.63-6.08 HEMOGLOBIN (BEAKER) (test icsc=410) 14.4 GM/DL 13.7-17.5 HEMATOCRIT (BEAKER) (test xqfe=469) 42.2 % 40.1-51.0 MEAN CORPUSCULAR VOLUME (BEAKER) (test sjwj=375) 98.1 fL 79.0-92.2 MEAN CORPUSCULAR HEMOGLOBIN (BEAKER) (test oekh=187) 33.5 pg 25.7-32.2 MEAN CORPUSCULAR HEMOGLOBIN CONC (BEAKER) (test ngcu=872) 34.1 GM/DL 32.3-36.5 RED CELL DISTRIBUTION WIDTH (BEAKER) (test ycha=408) 13.5 % 11.6-14.4 PLATELET COUNT (BEAKER) (test dszx=480) 204 K/CU MM 150-450 MEAN PLATELET VOLUME (BEAKER) (test enyr=464) 8.5 fL 9.4-12.4 NUCLEATED RED BLOOD CELLS (BEAKER) (test wvqv=311) 0 /100 WBC 0-0 NEUTROPHILS RELATIVE PERCENT (BEAKER) (test iumw=489) 59 % LYMPHOCYTES RELATIVE PERCENT (BEAKER) (test gyhy=221) 24 % MONOCYTES RELATIVE PERCENT (BEAKER) (test qghf=045) 9 % EOSINOPHILS RELATIVE PERCENT (BEAKER) (test ajev=518) 7 % BASOPHILS RELATIVE PERCENT (BEAKER) (test nxox=213) 1 % NEUTROPHILS ABSOLUTE COUNT (BEAKER) (test udcc=073) 4.59 K/ L 1.78-5.38 LYMPHOCYTES ABSOLUTE COUNT (BEAKER) (test zqxq=656) 1.86 K/ L 1.32-3.57 MONOCYTES ABSOLUTE COUNT (BEAKER) (test aprl=952) 0.68 K/ L 0.30-0.82 EOSINOPHILS ABSOLUTE COUNT (BEAKER) (test jywm=755) 0.55 K/ L 0.04-0.54 BASOPHILS ABSOLUTE COUNT (BEAKER) (test zyjn=248) 0.04 K/ L 0.01-0.08 IMMATURE GRANULOCYTES-RELATIVE PERCENT (BEAKER) (test bugi=0348) 0 % 0-1 CHEST SINGLE (PORTABLE)2018-08-24 19:29:00 [place] [address] Patient Name: HUNG MCHUGH MR #: [id number] : 1960 Age/Sex: 57/M Req #: [id number] Adm Physician: Ordered by: AINSLEY SPRING MD Report #: [id number] Location: ER Room/Bed: Procedure: [id number] DX/CHEST SINGLE (PORTABLE) Exam Date: 08/24/18 Exam Time: 1900 REPORT STATUS: Sign ed EXAMINATION: CHEST SINGLE (PORTABLE) COMPARISON: None INDIC ATION: Chest pain DISCUSSION: Frontal view of the chest obtained at 1906 hours. HEART AND MEDIASTINUM: The cardiomediastinal silhouette is unr emarkable. LINES: None. LUNGS: There is eventration of the right d iaphragm with overlying subsegmental atelectasis. Remainder of the right lung is clear. The left lung is well inflated and clear. No pneumonia or pulmonary edema. PLEURA: No pleural effusion or pneumothorax. BONES AND SOFT TI SSUES: No focal osseous lesion. The soft tissues are normal. IMPRESSION : Eventration of the right diaphragm of uncertain chronicity. No acute card iopulmonary process. Signed by: Dr. Kasey Muse MD on 08/24/2018 7:3 0 PM Dictated By: KASEY MUSE MD 29 Transcribed By: AYDEN on 08/24/181929 C OPY TO: AINSLEY SPRING MD
--- OUTSIDE RECORDS SUMMARY | 2019-04-05 05:10 | XMS REPORT ---
Author Author Jamal Schmidt Organization [employer] Address Unknown Phone Unavailable Care Team Providers Care Actuary Clerk Name Role Phone Jamal Schmidt CP Unavailable [...] Start Date End Date Status Dosage Lisinopril-Hydrochlorothiazide [facility] [id number] 20-25 MG by mouth Once a day (LAST REFILL. NEEDS TO BE SEEN Jul 12, 2017 Active 1 tablet Results No Known Results Summary Purpose [employer] Submission
--- OUTSIDE RECORDS SUMMARY | 2019-04-05 05:10 | XMS REPORT | Summary of Care ---
Author Author [facility] Organization [facility] Address Unknown Phone Unavailable Encounter JAQUELINE Mcgovern(FIN) [id number] Date(s): 11/03/17 - 11/03/17 [facility] [address] [place] [address]- Encounter Diagnosis Chest pain (Discharge Diagnosis) - [...] [0.0-1.0 0.4 % %] (11/03/17 12:39 AM) Neutrophils # 5.7 K/CMM [1.5-8.1 K/CMM] (11/03/17 12:39 [...]
--- OUTSIDE RECORDS SUMMARY | 2019-04-05 05:10 | XMS REPORT ---
Author Author Holli Esparza Organization [employer] Address Unknown Phone Unavailable Care Team Providers Care Speech And Drama Teacher Name Role Phone Holli Esparza CP Unavailable Allergies No Known Allergies Problems Problem Type Condition Code Onset Dates Condition Status Assessment B12 deficiency E53.8 Active Assessment Hypercholesterolemia E78.00 Active Problem S/P gastric bypass Z98.84 Active Problem Venous insufficiency I87.2 Active Problem Essential hypertension I10 Active Problem Gastritis without bleeding, unspecified chronicity, unspecified gastritis type K29.70 Active Problem Hypercholesterolemia E78.00 Active Problem Severe obesity (BMI >=40) E66.01 Active Medications Medication Code System Code Instructions Start Date End Date Status Dosage Atorvastatin Calcium [facility] [id number] 10 mg Orally Once a day March 14, 2019 Active 1 tablet Results No Known Results Summary Purpose [employer] Submission
--- OUTSIDE RECORDS SUMMARY | 2019-04-05 05:10 | XMS REPORT | Summary of Care ---
Author Author [facility] Organization [facility] Address Unknown Phone Unavailable Encounter HQ Encntr_alineftaly(FIN) [id number] Date(s): 03/27/19 - 03/27/19 [facility] [address] [place] [address]- 2 [phone] Attending Physician: Mitesh Turner MD Referring Physician: Jamal Schmidt MD Vital Signs No data available for this section Problem List Condition Effective Dates Status Health Status Informant Accelerated Active essential hypertension(Confirm ed) Acid Active reflux(Confirmed) Chest Active pain(Confirmed) Gastric bypass Active operation(Confirmed) Hypertension(Confirm Resolved ed) Morbid Active obesity(Confirmed) Repair of Active diaphragmatic hiatal hernia(Confirmed) Allergies, Adverse Reactions, Alerts No Known Medication Allergies Medications No data available for this section [...]
[2019-04-05 08:00] VITALS: BP 110/67
--- NOTE | 2019-04-07 14:37 | Operative Report ---
DATE OF PROCEDURE: 04/05/2019 SURGEON: Alex Simon MD PREOPERATIVE DIAGNOSES: 1. Left hydronephrosis. 2. Left ureteral stent. POSTOPERATIVE DIAGNOSES: 1. Left hydronephrosis. 2. Left ureteral stent. PROCEDURES: 1. Cystourethroscopy with staged removal of left indwelling ureteral stent (entirely separate procedure for removal of left ureteral stent). 2. Staged left-sided ureteroscopy( SEPARATE procedure for diagnosis of hydronephrosis in a staged fashion). 3. Supervision of fluoroscopy for both stent removal and ureteroscopy portion. 4. Interpretation of retrograde pyelography. ANESTHESIA: General. ESTIMATED BLOOD LOSS: Minimal. COMPLICATIONS: None. INDICATIONS: Mr. Porter is a very pleasant 58-year-old male with a history of lithotripsy and stent placement. I had a long discussion about alternatives, risks and benefits of doing nothing, stent removal, ureteroscopy, percutaneous surgery, or open surgery. He voiced understanding of the options, alternatives, risks, and benefits, elected to proceed. PROCEDURE IN DETAIL: After informed consent was obtained, the patient was taken to the operative suite, placed supine on the operating table. He underwent general anesthesia by Anesthesia Service. He was placed in the dorsal lithotomy position, sterilely prepped and draped for cystoscopy. in a planned staged fashion, A 21-Ugandan cystoscope was inserted per urethra. Normal urethra was noted. Panendoscopy of the bladder revealed no tumors, no stones. The stent was seen extruding from left ureteral orifice, it was grasped and removed intact. A guidewire was inserted. Second safety wire was introduced. Flexible ureteroscope was advanced to the level of renal pelvis. The collecting system was mapped. There were no stones seen. The ureteral stricture appears to be resolved after dilation of stent. Stent and safety wire removed. The bladder was drained. The patient was awakened by Anesthesia and transported to the recovery room in excellent condition. Supervision of fluoroscopy and interpretation of retrograde pyelography: I was present for the entire procedure and supervised the use of fluoroscopy for both ureteroscopy and stent removal portion. There was no radiologist present. Left ureteroscope was utilized for retrograde pyelogram. Mapping entire collecting systems, there were several Nikita's plaque seen. No stones seen. Interim resolution of hydronephrosis as well as ureteral stricture. MD SETH Pederson/OMAYRA /[id number] MTDD
== END | disposition home or self-care (01) ==
LOC: OR 05:00
PROVIDERS: ATTEND Urology
DX: N13.30 Unspecified hydronephrosis (principal); Z46.6 Encounter for fitting and adjustment of urinary device; N28.89 Other specified disorders of kidney and ureter; I10 Essential (primary) hypertension; E78.5 Hyperlipidemia, unspecified; K21.9 Gastro-esophageal reflux disease without esophagitis; E66.01 Morbid (severe) obesity due to excess calories; Z79.82 Long term (current) use of aspirin
CPT/HCPCS: 52351; 74420; C1788; J1100; J1580; J2001; J2250; J2405; J2704; J3010; Q9967

== ENCOUNTER → 2019-07-15 | Outpatient (CLI) | payer BC ==
[~2019-07-15] MED LIST changes: -DEXAMETHASONE SOD PHOS INJ 4 MG/ML VIAL ONE; -FENTANYL CITRATE/PF 100MCG/2 ML INJ ONE; -GENTAMICIN 120MG/NS 100ML 100 ML ONE; -IOPAMIDOL 610MG/1ML 300 MG/ML VIAL IV ONE; -LIDOCAINE HCL 2% LOCAL INJ 5 ML SDV VIAL INJ ONE; -MIDAZOLAM HCL 2 MG/2 ML VIAL ONE; -ONDANSETRON HCL INJ 2MG/ML 2ML 2 MG/ML VIAL ONE; -PROPOFOL IV EMULSION 10 MG/ML 20 ML VIAL ONE; -SEVOFLURANE INHAL SOLN 250 ML PEN BTL ONE
--- NOTE | 2019-07-15 13:26 | Diagnostic Imaging Report ---
Exam: KUB - 2 views Indication: Renal calculi Comparison: CT abdomen and pelvis of 03/15/2019 Findings: No radiographically apparent renal calculi. Nonobstructive bowel gas pattern. No free air. Surgical clips and sutures at the left upper quadrant related to prior gastric surgery. The osseous structures appear unremarkable. Impression: No radiographically apparent renal calculi. Signed by: Giuliana Babin MD on 07/15/2019 1:23 PM
== END ==
LOC: RAD 12:48
PROVIDERS: ATTEND Urology
DX: N20.0 Calculus of kidney (principal)
CPT/HCPCS: 74018